=== PATIENT | female | born 1975 | race Caucasian/White ===

== ENCOUNTER 2016-07-14 15:56 | Emergency (ER) | payer BC ==
[2016-07-14] MEDS ORDERED: SODIUM CHLORIDE 0.9% 1,000 ML IV STA (16:29)
--- NOTE | 2016-07-14 16:32 | ED ---
General Adult HPI - General Chief complaint: Dizziness Stated complaint: Near-syncope Time Seen by Provider: 07/14/16 16:24 Source: patient, EMS, RN notes reviewed Mode of arrival: EMS Limitations: no limitations - History of Present Illness Initial comments: Patient is a pleasant 40-year-old female presenting to the emergency department with lightheadedness and near syncopal episode. Symptoms have somewhat improved. Patient felt lightheaded and not well from this morning however prior to arrival symptoms did worsen. Patient felt very lightheaded and very fatigued. EMS reported that blood pressure was low. Patient states she is somewhat improved with fluids. Patient states she just started a new blood pressure medicine on Sunday. Patient is unclear with his blood pressure medicine as. Patient denies any chest pain. No dyspnea. No confusion or isolated area of weakness. - Related Data Home Medications Medication Instructions Recorded Confirmed Esomeprazole Magnesium [NexIUM] 40 mg PO DAILY 07/14/16 07/14/16 Hydrochlorothiazide [Hydrodiuril] 25 mg PO DAILY 07/14/16 07/14/16 Previous Rx's Medication Instructions Recorded Aspirin [Adult Low Dose Aspirin EC] 81 mg PO DAILY #90 tablet. 07/15/15 Atorvastatin [Lipitor] 80 mg PO HS #30 tab 07/15/15 Clopidogrel [Plavix] 75 mg PO DAILY #30 tab 07/15/15 Lisinopril [Zestril] 5 mg PO BID #60 tab 07/15/15 Metoprolol Tartrate [Lopressor] 25 mg PO BID #60 tab 07/15/15 Allergies Allergy/AdvReac Type Severity Reaction Status Date / Time No Known Allergies Allergy Verified 07/14/16 17:07 Review of Systems ROS Statement: Those systems with pertinent positive or pertinent negative responses have been documented in the HPI. ROS Other: All systems not noted in ROS Statement are negative. Constitutional: Denies: fever Eyes: Denies: eye pain ENT: Denies: ear pain Respiratory: Denies: dyspnea Cardiovascular: Denies: chest pain Endocrine: Reports: fatigue Genitourinary: Denies: dysuria Musculoskeletal: Denies: back pain Skin: Denies: rash Neurological: Denies: headache Past Medical History Past Medical History: Coronary Artery Disease (CAD), Chest Pain / Angina, Hypertension, Pneumonia, Rheumatoid Arthritis ([place]) History of Any Multi-Drug Resistant Organisms: None Reported Past Surgical History: Cholecystectomy, Heart Catheterization, Tubal Ligation Additional Past Surgical History / Comment(s): clear heart cath on 07/14/2015 Past Anesthesia/Blood Transfusion Reactions: No Reported Reaction Past Psychological History: No Psychological Hx Reported Smoking Status: Never smoker Past Alcohol Use History: None Reported Past Drug Use History: None Reported - Past Family History Mother Family Medical History: Cancer Additional Family Medical History / Comment(s): breast [place] General Exam Limitations: no limitations General appearance: alert, in no apparent distress Head exam: Present: atraumatic Eye exam: Present: normal appearance, PERRL, EOMI. Absent: nystagmus ENT exam: Present: normal oropharynx Neck exam: Present: normal inspection Respiratory exam: Present: normal lung sounds bilaterally Cardiovascular Exam: Present: regular rate, normal rhythm Expanded Peripheral pulses: 2+: Radial (R), Radial (L), Dorsalis Pedis (R), Dorsalis Pedis (L) GI/Abdominal exam: Present: soft. Absent: tenderness Extremities exam: Present: normal inspection. Absent: pedal edema, calf tenderness Neurological exam: Present: alert, oriented X3, CN II-XII intact. Absent: motor sensory deficit Expanded Patient oriented to: Present: person, place, time Speech: Present: fluid speech Cranial nerves: EOM's Intact: Normal Sensory exam: Upper Extremity Light Touch: Normal, Lower Extremity Light Touch: Normal Motor strength exam: RUE: 5, LUE: 5, RLE: 5, LLE: 5 Eye Response: (4) open spontaneously Motor Response: (6) obeys commands Verbal Response: (5) oriented Psychiatric exam: Present: normal affect, normal mood Skin exam: Present: normal color Course Vital Signs 07/14/16 07/14/16 15:57 17:00 Temperature 96.9 F L Pulse Rate 74 67 Respiratory 20 18 Rate Blood Pressure 111/58 111/70 O2 Sat by Pulse 99 100 Oximetry EKG Findings - EKG Comments: EKG Findings:: Normal sinus rhythm 73. Normal intervals. Normal axis. Normal QRS. Nonspecific T waves. Medical Decision Making - Medical Decision Making Patient reexamined and feels much better. Patient still is slightly fatigued. Patient was able to get up and walk around without any difficulty. Repeat blood pressure maintained stable. Patient requests discharge. Mother is present and states recent blood pressure medicine was diaphoretic. Patient is advised to discontinue this until follow-up. - Lab Data Result diagrams: 07/14/16 16:03 07/14/16 16:03 Lab Results 07/14/16 07/14/16 07/14/16 Range/Units 16:03 16:03 16:03 WBC 7.0 (3.8-10.6) k/uL RBC 4.88 (3.80-5.40) m/uL Hgb 14.4 (11.4-16.0) gm/dL Hct 41.2 (34.0-46.0) % MCV 84.3 (80.0-100.0) fL MCH 29.4 (25.0-35.0) pg MCHC 34.9 (31.0-37.0) g/dL RDW 13.2 (11.5-15.5) % Plt Count 237 (150-450) k/uL Neutrophils % 57 % Lymphocytes % 33 % Monocytes % 6 % Eosinophils % 2 % Basophils % 1 % Neutrophils # 4.0 (1.3-7.7) k/uL Lymphocytes # 2.3 (1.0-4.8) k/uL Monocytes # 0.4 (0-1.0) k/uL Eosinophils # 0.1 (0-0.7) k/uL Basophils # 0.1 (0-0.2) k/uL PT (9.0-12.0) sec INR (<1.1) APTT (22.0-30.0) sec Sodium 143 (137-145) mmol/L Potassium 4.6 (3.5-5.1) mmol/L Chloride 107 (98-107) mmol/L Carbon Dioxide 24 (22-30) mmol/L Anion Gap 12 mmol/L BUN 29 H (7-17) mg/dL Creatinine 1.50 H (0.52-1.04) mg/dL Est GFR (MDRD) Af Amer 47 (>60 ml/min/1.73 sqM) Est GFR (MDRD) Non-Af 39 (>60 ml/min/1.73 sqM) Glucose 63 L (74-99) mg/dL Calcium 10.1 (8.4-10.2) mg/dL Phosphorus 3.2 (2.5-4.5) mg/dL Magnesium 2.3 (1.6-2.3) mg/dL Total Bilirubin 1.2 (0.2-1.3) mg/dL AST 20 (14-36) U/L ALT 24 (9-52) U/L Alkaline Phosphatase 78 (38-126) U/L Total Creatine Kinase 53 (30-135) U/L CK-MB (CK-2) 3.0 H* (0.0-2.4) ng/mL CK-MB (CK-2) Rel Index 5.7 Troponin I <0.012 (0.000-0.034) ng/mL Total Protein 7.4 (6.3-8.2) g/dL Albumin 4.4 (3.5-5.0) g/dL TSH 1.690 (0.465-4.680) mIU/L Free T4 1.03 (0.78-2.19) ng/dL Free T3 pg/mL 3.9 (2.8-5.3) pg/ml // Range/Units 16:03 WBC (3.8-10.6) k/uL RBC (3.80-5.40) m/uL Hgb (11.4-16.0) gm/dL Hct (34.0-46.0) % MCV (80.0-100.0) fL MCH (25.0-35.0) pg MCHC (31.0-37.0) g/dL RDW (11.5-15.5) % Plt Count (150-450) k/uL Neutrophils % % Lymphocytes % % Monocytes % % Eosinophils % % Basophils % % Neutrophils # (1.3-7.7) k/uL Lymphocytes # (1.0-4.8) k/uL Monocytes # (0-1.0) k/uL Eosinophils # (0-0.7) k/uL Basophils # (0-0.2) k/uL PT 9.8 (9.0-12.0) sec INR 1.0 (<1.1) APTT 20.6 L (22.0-30.0) sec Sodium (137-145) mmol/L Potassium (3.5-5.1) mmol/L Chloride (98-107) mmol/L Carbon Dioxide (22-30) mmol/L Anion Gap mmol/L BUN (7-17) mg/dL Creatinine (0.52-1.04) mg/dL Est GFR (MDRD) Af Amer (>60 ml/min/1.73 sqM) Est GFR (MDRD) Non-Af (>60 ml/min/1.73 sqM) Glucose (74-99) mg/dL Calcium (8.4-10.2) mg/dL Phosphorus (2.5-4.5) mg/dL Magnesium (1.6-2.3) mg/dL Total Bilirubin (0.2-1.3) mg/dL AST (14-36) U/L ALT (9-52) U/L Alkaline Phosphatase (38-126) U/L Total Creatine Kinase (30-135) U/L CK-MB (CK-2) (0.0-2.4) ng/mL CK-MB (CK-2) Rel Index Troponin I (0.000-0.034) ng/mL Total Protein (6.3-8.2) g/dL Albumin (3.5-5.0) g/dL TSH (0.465-4.680) mIU/L Free T4 (0.78-2.19) ng/dL Free T3 pg/mL (2.8-5.3) pg/ml - Radiology Data Radiology results: image reviewed (Chest x-ray reveals no acute process) Disposition Clinical Impression: Hypotension Disposition: HOME SELF-CARE Condition: Stable Instructions: Hypotension (ED) Additional Instructions: Hold hydrochlorothiazide until follow-up with cardiology or primary care physician in the beginning of the week. Return for decreased blood pressure, increased dizziness, feeling like urinary pass out, chest pain or shortness of breath, worsening symptoms or other concerns. Referrals: Ayaan Pace MD [Primary Care Provider] - 1-2 days Time of Disposition: 18:24
[2016-07-14 17:04] LABS: Basophils # (A) 0.1 k/uL (0-0.2); Basophils % (A) 1 %; CHCM 34.6; Eosinophils # (A) 0.1 k/uL (0-0.7); Eosinophils % (A) 2 %; HCT 41.2 % (34.0-46.0); HDW 2.69; HGB 14.4 gm/dL (11.4-16.0); Luc # (Auto) 0.14; Luc % (Auto) 2; Lymphocytes # (A) 2.3 k/uL (1.0-4.8); Lymphocytes % (A) 33 %; MCH 29.4 pg (25.0-35.0); MCHC 34.9 g/dL (31.0-37.0); MCV 84.3 fL (80.0-100.0); Mean Platelet Volume 8.5; Monocytes # (A) 0.4 k/uL (0-1.0); Monocytes % (A) 6 %; Neutrophils % (A) 57 %; RBC 4.88 m/uL (3.80-5.40); RDW 13.2 % (11.5-15.5); WBC (Perox) 7.04
[2016-07-14 17:08] LABS: Prothrombin Time 9.8 sec (9.0-12.0)
[2016-07-14 17:09] LABS: Calcium 10.1 mg/dL (8.4-10.2); Magnesium 2.3 mg/dL (1.6-2.3); Phosphorous 3.2 mg/dL (2.5-4.5); Potassium 4.6 mmol/L (3.5-5.1); Total Bilirubin 1.2 mg/dL (0.2-1.3); Total Protein 7.4 g/dL (6.3-8.2)
[2016-07-14 17:13] VITALS: RESP 18
[2016-07-14 17:23] LABS: Partial Thromboplastin Time 20.6 sec (22.0-30.0)
[2016-07-14 17:31] LABS: Creatine Kinase 53 U/L (30-135)
--- NOTE | 2016-07-14 17:40 | XR ---
EXAMINATION TYPE: XR chest 2V DATE OF EXAM: 07/14/2016 5:29 PM COMPARISON: NONE HISTORY: Weakness and chest pain TECHNIQUE: Frontal and lateral views of the chest are obtained. FINDINGS: Heart and mediastinum are normal lungs are clear. Diaphragm is normal. Bony thorax appears normal. There are chest leads. IMPRESSION: Normal chest
[2016-07-14 17:43] LABS: Troponin I <0.012 ng/mL (0.000-0.034)
[2016-07-14 18:36] VITALS: BP 101/58; PULSE 70; TEMP 97.7
== END 2016-07-14 18:36 | disposition home or self-care (01) ==
LOC: EC 15:56
DX: I95.9 Hypotension, unspecified (principal); I10 Essential (primary) hypertension; Z79.899 Other long term (current) drug therapy
CPT/HCPCS: 36415; 71020; 80053; 82550; 82553; 83735; 84100; 84439; 84443; 84481; 84484; 85025; 85610; 85730; 93005; 96360; 99284; 99285

== ENCOUNTER 2019-03-20 19:40 | Emergency (ER) | payer BC ==
[2019-03-20 19:49] VITALS: BP 150/103; PULSE 80; RESP 20; TEMP 98.7
[2019-03-20] MEDS ORDERED: LIDOCAINE 1% INJ 10MG/ML (20 ML MDV) SQ STA (19:59)
[2019-03-20] MEDS ORDERED: DIPH,PERTUS(ACELL)TETVAC-LF 0.5 ML VIAL IM ONE (19:59)
[2019-03-20] MEDS ORDERED: WATER FOR IRRIG, STERILE 1,000 ML BTL IRRIGATION ONE (19:59)
--- NOTE | 2019-03-20 20:22 | XR ---
PROCEDURE: XR hand complete LT - 3V DATE AND TIME: 03/20/2019 8:15 PM CLINICAL INDICATION: PHH; laceration TECHNIQUE: Department protocol COMPARISON: None FINDINGS: There is no fracture or malalignment. The soft tissues shows soft tissue swelling and evidence of laceration. No radiopaque foreign body. IMPRESSION: Soft tissue swelling/laceration changes.
[2019-03-20] MEDS ORDERED: CEPHALEXIN 500MG STARTER PACK 4 CAP BTL PO STA (21:18)
--- NOTE | 2019-03-20 21:20 | ED ---
General Adult HPI - General Chief complaint: Wound/Laceration Stated complaint: hand lac Time Seen by Provider: 03/20/19 19:47 Source: patient, RN notes reviewed, old records reviewed Mode of arrival: ambulatory Limitations: no limitations - History of Present Illness Initial comments: 43-year-old female patient with no pertinent past HISTORY presents to ED for chief complaint of laceration to left and webbing of hand. Patient reports that she went to stab a knife into a can of soup when she missed instead putting a knife into enter webbing of her hand between her first and second digit. She reports that she does have pain shooting up the arm. Reports that she does have limited range of motion of her thumb now. Denies any other complaints. Systemic: Pt denies fatigue, fever/chills, rash. Pt denies weakness, night sweats, weight loss. Neuro: Pt denies headache, visual disturbances, syncope or pre-syncope. HEENT: Pt denies ocular discharge or irritation, otalgia, rhinorrhea, pharyngitis or notable lymphadenopathy. Cardiopulmonary: Pt denies chest pain, SOB, heart palpitations, dyspnea on exertion. Abdominal/GI: Pt denies abdominal pain, n/v/d. : Pt denies dysuria, burning w/ urination, frequency/urgency. Denies new onset urinary or bowel incontinence. MSK: Pt denies myalgia, loss of strength or function in extremities. Neuro: Pt denies new onset weakness, paresthesias. - Related Data Home Medications Medication Instructions Recorded Confirmed Esomeprazole Magnesium [NexIUM] 40 mg PO DAILY 07/14/16 07/14/16 Hydrochlorothiazide [Hydrodiuril] 25 mg PO DAILY 07/14/16 07/14/16 Previous Rx's Medication Instructions Recorded Aspirin [Adult Low Dose Aspirin EC] 81 mg PO DAILY #90 tablet. 07/15/15 Atorvastatin [Lipitor] 80 mg PO HS #30 tab 07/15/15 Clopidogrel [Plavix] 75 mg PO DAILY #30 tab 07/15/15 Lisinopril [Zestril] 5 mg PO BID #60 tab 07/15/15 Metoprolol Tartrate [Lopressor] 25 mg PO BID #60 tab 07/15/15 Cephalexin [Keflex] 500 mg PO Q12HR 7 Days #14 cap 03/20/19 Allergies Allergy/AdvReac Type Severity Reaction Status Date / Time No Known Allergies Allergy Verified 03/20/19 19:49 Review of Systems ROS Statement: Those systems with pertinent positive or pertinent negative responses have been documented in the HPI. ROS Other: All systems not noted in ROS Statement are negative. Past Medical History Past Medical History: Coronary Artery Disease (CAD), Chest Pain / Angina, Hypertension, Myocardial Infarction ([place]), Pneumonia, Rheumatoid Arthritis (RA) History of Any Multi-Drug Resistant Organisms: None Reported Past Surgical History: Cholecystectomy, Heart Catheterization, Tubal Ligation Additional Past Surgical History / Comment(s): clear heart cath on 07/14/2015 Past Anesthesia/Blood Transfusion Reactions: No Reported Reaction Past Psychological History: No Psychological Hx Reported Smoking Status: Never smoker Past Alcohol Use History: None Reported Past Drug Use History: None Reported - Past Family History Mother Family Medical History: Cancer Additional Family Medical History / Comment(s): breast [place] General Exam - General Exam Comments Initial Comments: Constitutional: NAD, AOX3, Pt has pleasant affect. HEENT: NC/AT, trachea midline, neck supple, no lymphadenopathy. Posterior pharynx non erythematous, without exudates. External ears appear normal, without discharge. Mucous membranes moist. Eyes PERRLA, EOM intact. There is no scleral icterus. No pallor noted. Cardiopulmonary: RRR, no murmurs, rubs or gallops, no JVD noted. Lungs CTAB in anterior and posterior john. No peripheral edema. Abdominal exam: Abdomen soft and non-distended. Abdomen non-tender to palpation in all 4 quadrants. Bowel sounds active in LLQ. No hepatosplenomegaly. No ecchymosis Neuro: CN II-XII grossly intact. No nuchal rigidity. No raccon eyes, no christina sign, no hemotympanum. No cervical spinal tenderness. MSK: Flexion extension of left thumb intact. Abduction and abduction limited. 2 cm laceration, vigorously irrigated, prepped and one simple interrupted suture. No visible tendon or bone involvement. Patient placed in thumb spica splint. Neurovascularly intact before and after splint placement. Sensation intact. Capillary refill less than 2 seconds. No posterior calf tenderness bilaterally, homans sign negative bilaterally. Posterior tibialis and radial pulse +2 bilaterally. Sensation intact in upper and lower extremities. Full active ROM in upper and lower extremities, 5/5 stregnth. Limitations: no limitations Course Vital Signs 03/20/19 19:47 Temperature 98.7 F Pulse Rate 80 Respiratory 20 Rate Blood Pressure 150/103 O2 Sat by Pulse 99 Oximetry Medical Decision Making - Medical Decision Making 43-year-old female patient with no pertinent past HISTORY presents to ED for chief complaint of laceration to left and webbing of hand. Patient reports that she went to stab a knife into a can of soup when she missed instead putting a knife into enter webbing of her hand between her first and second digit. She reports that she does have pain shooting up the arm. Reports that she does have limited range of motion of her thumb now. Denies any other complaints. Patient vital signs are stable, afebrile. Physical exam displayed: Flexion extension of left thumb intact. Abduction and abduction limited. 2 cm laceration, vigorously irrigated, prepped and one simple interrupted suture. No visible tendon or bone involvement. Patient placed in thumb spica splint. Neurovascularly intact before and after splint placement. Sensation intact. Capillary refill less than 2 seconds. Patient initiated on Keflex. Placed in thumb spica splint. An films with soft tissue swelling/laceration changes. No risk intact after splint placement. Patient was discharged to follow-up with orthopedic consult tomorrow and return to ER if condition worsens. Case discussed with Dr. Quiroz. Disposition Clinical Impression: Laceration Disposition: HOME SELF-CARE Condition: Stable Instructions (If sedation given, give patient instructions): Care For Your Stitches (ED), Laceration (ED) Additional Instructions: Follow-up with primary care and orthopedic consult tomorrow. Continue to wear splint. Monitor for signs symptoms of infection. Take antibiotics as directed. Return to ER if condition worsens. Please return for suture removal: Hand: 7-10 days Face: 5 days Chest/abdomen: 12-14 days Extremities: 7-10 days Scalp: 7 days Eyebrow: 5-7 days Foot/sole: 12-14 days Please monitor for signs and symptoms of infection including: redness, warmth, drainage, discharge. Please return to ED if these signs or symptoms occur, new signs or symptoms develop or if condition worsens in anyway. Prescriptions: Cephalexin [Keflex] 500 mg PO Q12HR 7 Days #14 cap Is patient prescribed a controlled substance at d/c from ED?: No Referrals: Ayaan Pace MD [Primary Care Provider] - 1-2 days Kavin Carroll DO [Medical Doctor] - 1-2 days
== END 2019-03-20 21:44 | disposition home or self-care (01) ==
LOC: EC 19:40
DX: S61.412A Laceration without foreign body of left hand, initial encounter (principal); I25.119 Atherosclerotic heart disease of native coronary artery with unspecified angina pectoris; I10 Essential (primary) hypertension; I25.2 Old myocardial infarction; Z79.899 Other long term (current) drug therapy; Z95.818 Presence of other cardiac implants and grafts; Z23 Encounter for immunization; W26.0XXA Contact with knife, initial encounter; Y93.89 Activity, other specified; Y92.009 Unspecified place in unspecified non-institutional (private) residence as the place of occurrence of the external cause
CPT/HCPCS: 73130; 90715; 99283; 12001; 90471; J2001

== ENCOUNTER → 2019-09-03 | Outpatient (CLI) | payer BC ==
--- NOTE | 2019-09-03 18:28 | MR ---
EXAMINATION TYPE: MR knee LT wo con DATE OF EXAM: 09/03/2019 COMPARISON: None HISTORY: Left knee pain, no trauma TECHNIQUE: Multiplanar, multisequence images of the knee is performed without IV contrast. FINDINGS: MEDIAL MENISCUS: Chronic tear anterior horn and body medial meniscus. Posterior and is intact LATERAL MENISCUS: Anterior and posterior horns are intact without tear. CRUCIATE LIGAMENTS: The anterior and posterior cruciate ligaments are intact and unremarkable. COLLATERAL LIGAMENTS: The medial collateral ligament and lateral collateral ligament complex are inta ct and unremarkable. EXTENSOR MECHANISM: Visualized quadriceps and patellar tendons are intact. EFFUSION: Small suprapatellar joint effusion. POPLITEAL CYST: No popliteal/pierre cyst. TRICOMPARTMENT SPACES: Severe narrowing medial tibiofemoral joint space and mild narrowing lateral ti biofemoral joint space. Moderate narrowing patellofemoral joint space. Associated spur formation. CARTILAGE: Cartilaginous thinning noted without defects seen. BONE MARROW SIGNAL: No focal abnormal marrow signal is appreciated. OTHER: No additional significant abnormality is appreciated. IMPRESSION: 1. Advanced changes of osteoarthritis. 2. Chronic tear anterior horn and body of the medial meniscus.
== END | disposition home or self-care (01) ==
LOC: RADMRIMAIN 16:20
PROVIDERS: ATTEND Orthopaedic Surgery
DX: M17.12 Unilateral primary osteoarthritis, left knee (principal); I10 Essential (primary) hypertension; S83.242A Other tear of medial meniscus, current injury, left knee, initial encounter

== ENCOUNTER 2020-12-14 03:11 | Inpatient (IN) | payer BC ==
--- NOTE | 2020-12-14 03:30 | ED ---
Chest Pain HPI - General Chief Complaint: Chest Pain Stated Complaint: Chest Pain Time Seen by Provider: 12/14/20 03:19 Source: patient Mode of arrival: wheelchair - History of Present Illness Initial Comments: This patient is a 45-year-old woman who states that she started having pain shortly after 3 AM. The patient states that she had awakened from sleep not feeling well and then noticed she was having left upper chest pain. She had her bring her here. Complaint: chest pain Onset/Timin -: minutes(s) Onset: during rest Pain Location: substernal Pain Radiation: none Severity: severe Quality: aching Consistency: constant Improves With: nothing Worsens With: nothing Treatments Prior to Arrival: none - Related Data Previous Rx's Medication Instructions Recorded Aspirin [Adult Low Dose Aspirin EC] 81 mg PO DAILY #90 tablet. 07/15/15 Clopidogrel [Plavix] 75 mg PO DAILY #30 tab 07/15/15 lisinopriL [Zestril] 5 mg PO BID #60 tab 07/15/15 Allergies Allergy/AdvReac Type Severity Reaction Status Date / Time No Known Allergies Allergy Verified 12/14/20 09:22 Review of Systems ROS Statement: Those systems with pertinent positive or pertinent negative responses have been documented in the HPI. ROS Other: All systems not noted in ROS Statement are negative. Constitutional: Denies: fever, chills Respiratory: Denies: cough, dyspnea Cardiovascular: Reports: chest pain. Denies: palpitations, dyspnea on exertion, edema Gastrointestinal: Denies: abdominal pain, nausea, vomiting Genitourinary: Denies: dysuria Musculoskeletal: Denies: back pain Skin: Denies: rash Neurological: Denies: headache, weakness, numbness EKG Findings - EKG Comments: EKG Findings:: Possible old anterior infarct. - EKG Results: EKG: interpreted by ERMD, sinus rhythm (Rate 72 bpm), normal axis, normal ST/T Past Medical History Past Medical History: Coronary Artery Disease (CAD), Chest Pain / Angina, Hypertension, Myocardial Infarction ([place]), Pneumonia, Rheumatoid Arthritis ([place]) History of Any Multi-Drug Resistant Organisms: None Reported Past Surgical History: Cholecystectomy, Heart Catheterization, Tubal Ligation Additional Past Surgical History / Comment(s): clear heart cath on 07/14/2015 Past Anesthesia/Blood Transfusion Reactions: No Reported Reaction Past Psychological History: No Psychological Hx Reported Smoking Status: Never smoker Past Alcohol Use History: None Reported Past Drug Use History: None Reported - Past Family History Mother Family Medical History: Cancer Additional Family Medical History / Comment(s): breast [place] General Exam General appearance: alert, in no apparent distress Head exam: Present: atraumatic, normocephalic Eye exam: Present: normal appearance. Absent: scleral icterus, conjunctival injection ENT exam: Present: normal oropharynx Neck exam: Absent: tenderness Respiratory exam: Present: normal lung sounds bilaterally, chest wall tenderness. Absent: respiratory distress, wheezes, rales, rhonchi, stridor Cardiovascular Exam: Present: regular rate, normal rhythm, normal heart sounds. Absent: systolic murmur, diastolic murmur, rubs, gallop GI/Abdominal exam: Present: soft. Absent: distended, tenderness, guarding, rebound, rigid, mass Extremities exam: Present: normal inspection, normal capillary refill. Absent: pedal edema, calf tenderness Back exam: Present: normal inspection. Absent: CVA tenderness (R), CVA tenderness (L) Neurological exam: Present: alert Skin exam: Present: warm, dry, intact, normal color. Absent: rash Course Vital Signs 12/14/20 12/14/20 12/14/20 03:12 03:35 04:05 Temperature 98.9 F Pulse Rate 83 77 Pulse Rate [ 79 Escrow Assistant ] Respiratory 22 22 Rate Blood Pressure 179/106 119/64 O2 Sat by Pulse 98 95 Oximetry 12/14/20 12/14/20 12/14/20 04:10 04:15 04:20 Temperature Pulse Rate 84 78 78 Pulse Rate [ Escrow Assistant ] Respiratory 22 23 22 Rate Blood Pressure 81/57 88/54 86/43 O2 Sat by Pulse 95 96 97 Oximetry Chest Pain [facility] Patient is a 45-year-old woman with left anterior chest pain. Initial ECG is suspicious but not diagnostic. While the patient was having x-ray she became unresponsive. Taken directly to the resuscitation bay and ACLS protocol instituted. Patient in V. fib. Shock is delivered and CPR continued with 1 mg of epinephrine. At the pulse check, there is ROSC, and patient did become alert and able to speak. At this point, the ECG shows ST elevations in lateral leads 1, aVL as well as leads V2, V3, V4. The medical lab technologist was activated. Case is discussed with Dr. Mondragon, who requests that Dr. Cadena be paged. I then discussed the case with him as well. Disposition
[2020-12-14] MEDS ORDERED: ASPIRIN 81 MG PO STA (03:36)
[2020-12-14] MEDS ORDERED: MORPHINE SULFATE 4 MG/ML SYRINGE IV STA ×2 (03:36→04:12)
[2020-12-14 03:42] LABS: Basophils # (A) 0.1 k/uL (0-0.2); Basophils % (A) 1 %; Eosinophils # (A) 0.2 k/uL (0-0.7); Eosinophils % (A) 2 %; HCT 39.7 % (34.0-46.0); HGB 12.8 gm/dL (11.4-16.0); Lymphocytes # (A) 3.6 k/uL (1.0-4.8); Lymphocytes % (A) 40 %; MCH 27.5 pg (25.0-35.0); MCHC 32.2 g/dL (31.0-37.0); MCV 85.4 fL (80.0-100.0); Mean Platelet Volume 8.8; Monocytes # (A) 0.4 k/uL (0-1.0); Monocytes % (A) 5 %; Neutrophils # (A) 4.6 k/uL (1.3-7.7); Neutrophils % (A) 51 %; Platelet Count 216 k/uL (150-450); RBC 4.65 m/uL (3.80-5.40); RDW 13.2 % (11.5-15.5); WBC 9.2 k/uL (3.8-10.6)
[2020-12-14] MEDS ORDERED: ONDANSETRON 4 MG/2 ML VIAL IVP STA ×2 (03:44→04:07)
[2020-12-14 03:59] LABS: ALT 13 U/L (4-34); AST 18 U/L (14-36); African American GFR (CKD) >90 (>60 ml/min/1.73 sqM); Albumin 3.8 g/dL (3.5-5.0); Alkaline Phosphatase 86 U/L (38-126); Anion Gap 8 mmol/L; Blood Urea Nitrogen 14 mg/dL (7-17); Calcium 9.5 mg/dL (8.4-10.2); Carbon Dioxide 22 mmol/L (22-30); Chloride 105 mmol/L (98-107); Glucose 139 mg/dL (74-99); Magnesium 1.8 mg/dL (1.6-2.3); Non-African American GFR(CKD) >90 (>60 ml/min/1.73 sqM); Potassium 4.2 mmol/L (3.5-5.1); Sodium 135 mmol/L (137-145); Total Bilirubin 0.7 mg/dL (0.2-1.3); Total Protein 6.7 g/dL (6.3-8.2)
[2020-12-14 04:02] LABS: Glucose,Whole Blood 122 mg/dL (75-99)
[2020-12-14] MEDS ORDERED: HEPARIN SODIUM 1,000 UN/ML (10ML VL) IV ONE (04:07)
[2020-12-14] MEDS ORDERED: HEPARIN SODIUM 1,000 UN/ML (10ML VL) IV PRN ×2 (04:07→06:04)
[2020-12-14] MEDS ORDERED: ATORVASTATIN 40 MG TAB PO STA (04:12)
[2020-12-14] MEDS ORDERED: HEPARIN SOD,PORK IN 0.45% NACL 25,000 UNIT in 0.45% NACL 1 250ML.BAG IV SCH (04:15)
--- NOTE | 2020-12-14 04:23 | XR ---
EXAMINATION TYPE: XR chest 1V DATE OF EXAM: 12/14/2020 COMPARISON: 07/14/2016 HISTORY: Chest pain TECHNIQUE: FINDINGS: Heart is normal. Lungs are clear of consolidation. There are no hilar masses. There are yudelka st leads. Bony thorax is intact. IMPRESSION: No active cardiopulmonary disease. No change.
[2020-12-14] MEDS ORDERED: IV FLUID CONTINUATION 400 ML IV ONE (04:30)
[2020-12-14] MEDS ORDERED: IV FLUID CONTINUATION 100 ML IV ONE (04:30)
[2020-12-14] MEDS ORDERED: SODIUM CHLORIDE 0.9% 1,000 ML IV ONE (04:35)
[2020-12-14] MEDS ORDERED: LIDOCAINE 1% INJ 10MG/ML (20 ML MDV) SQ ONE ×2 (04:40→04:42)
[2020-12-14] MEDS ORDERED: LIDOCAINE 1% INJ 10MG/ML (20 ML MDV) ONE (04:40)
[2020-12-14] MEDS ORDERED: NOREPINEPHRINE 4 MG in SODIUM CHLORIDE 0.9% 250 ML IV ONE (04:45)
[2020-12-14 04:47] LABS: INR 0.9 (<1.2); Prothrombin Time 9.5 sec (9.0-12.0)
[2020-12-14] MEDS ORDERED: PRASUGREL 10 MG TAB ONE (05:01)
[2020-12-14] MEDS ORDERED: fentaNYL (PF) 50 MCG/ML 2 ML AMP ONE (05:02)
[2020-12-14] MEDS ORDERED: fentaNYL (PF) 50 MCG/ML 2 ML AMP IV ONE (05:06)
[2020-12-14] MEDS ORDERED: PRASUGREL 10 MG TAB PO ONE (05:17)
[2020-12-14] MEDS ORDERED: IOPAMIDOL-370 125ML BTL INJ ONE (05:18)
[2020-12-14] MEDS ORDERED: RX INFO: IV CONTRAST WAS GIVEN 1 EACH MISC MISCELLANE PRN (05:18)
[2020-12-14] MEDS ORDERED: SODIUM CHLORIDE 0.9% 1,000 ML IV SCH (05:30)
[2020-12-14 05:48] LABS: Glucose,Whole Blood 169 mg/dL (75-99)
[2020-12-14] MEDS ORDERED: ONDANSETRON 4 MG/2 ML VIAL IVP PRN (06:16)
[2020-12-14] MEDS: SODIUM CHLORIDE 0.9% 1,000 ML IV SCH ×2 (06:45→19:59)
[2020-12-14] MEDS: NOREPINEPHRINE 4 MG in SODIUM CHLORIDE 0.9% 250 ML IV SCH ×2 (06:46→18:24)
[2020-12-14] MEDS ORDERED: METOCLOPRAMIDE 5 MG/ML 2 ML VIAL IVP PRN (07:01)
[2020-12-14] MEDS: HEPARIN SOD,PORK IN 0.45% NACL 25,000 UNIT in 0.45% NACL 1 250ML.BAG IV SCH (08:09)
--- NOTE | 2020-12-14 08:09 | P.HPIM ---
History of Present Illness H&P Date: 12/14/20 Chief Complaint: Significant chest pressure and episode of ventricular fibri llation This is a history of 45-year-old white female who has known history of CAD in the past with myocardial infraction. The patient states chest pain yesterday and it was reminiscent of previous events. Initial workup was negative but when she went to have chest x-ray done she had an episode of ventricular fibrillation. The patient was then resuscitated appropriately and taken to the catheter lab. The patient is now seen postoperatively of ST elevation myocardial infarction. The patient is tired. She is typically compliant with her medications given her previous history but sees me minimally throughout the years. No voiding symptoms. Diaphoresis is noted. Review of Systems Constitutional: Denies chills, Denies fever Eyes: denies blurred vision, denies pain Ears, nose, mouth and throat: Denies headache, Denies sore throat Cardiovascular: Reports as per HPI, Reports chest pain, Reports shortness of breath Gastrointestinal: Denies abdominal pain, Denies diarrhea, Denies nausea, Denies vomiting Genitourinary: Denies dysuria, Denies hematuria Musculoskeletal: Denies myalgias Past Medical History Past Medical History: Coronary Artery Disease (CAD), Chest Pain / Angina, Hypertension, Myocardial Infarction (SD), Pneumonia, Rheumatoid Arthritis (RA) History of Any Multi-Drug Resistant Organisms: None Reported Past Surgical History: Cholecystectomy, Heart Catheterization, Tubal Ligation Additional Past Surgical History / Comment(s): clear heart cath on 07/14/2015 Past Anesthesia/Blood Transfusion Reactions: No Reported Reaction Past Psychological History: No Psychological Hx Reported Smoking Status: Never smoker Past Alcohol Use History: None Reported Past Drug Use History: None Reported - Past Family History Mother Family Medical History: Cancer Additional Family Medical History / Comment(s): breast CA Medications and Allergies Home Medications Medication Instructions Recorded Confirmed Type Aspirin [Adult Low Dose Aspirin EC] 81 mg PO DAILY #90 tablet. 07/15/15 07/14/16 Rx Atorvastatin [Lipitor] 80 mg PO HS #30 tab 07/15/15 07/14/16 Rx Clopidogrel [Plavix] 75 mg PO DAILY #30 tab 07/15/15 07/14/16 Rx Metoprolol Tartrate [Lopressor] 25 mg PO BID #60 tab 07/15/15 07/14/16 Rx lisinopriL [Zestril] 5 mg PO BID #60 tab 07/15/15 07/14/16 Rx Esomeprazole Magnesium [NexIUM] 40 mg PO DAILY 07/14/16 07/14/16 History hydroCHLOROthiazide [Hydrodiuril] 25 mg PO DAILY 07/14/16 07/14/16 History Cephalexin [Keflex] 500 mg PO Q12HR 7 Days #14 cap 03/20/19 Rx Allergies Allergy/AdvReac Type Severity Reaction Status Date / Time No Known Allergies Allergy Verified 12/14/20 03:15 Physical Exam Vitals: Vital Signs Temp Pulse Pulse Resp BP Pulse Ox 12/14/20 07:00 113 H 20 97/69 99 12/14/20 06:50 63 18 97/69 100 12/14/20 06:40 73 7 L 100/67 100 12/14/20 06:30 73 17 101/74 99 12/14/20 06:20 68 18 99 12/14/20 06:10 61 18 100/75 100 12/14/20 06:00 66 18 120/79 100 12/14/20 05:50 76 11 L 99 12/14/20 04:25 68 20 84/50 95 12/14/20 04:20 78 22 86/43 97 12/14/20 04:15 78 23 88/54 96 12/14/20 04:10 84 22 81/57 95 12/14/20 04:05 77 22 119/64 95 12/14/20 03:35 79 12/14/20 03:12 98.9 F 83 22 179/106 98 Intake and Output 12/13/20 12/14/20 12/14/20 22:59 06:59 14:59 Intake Total 565.71 78.448 Output Total 0 0 Balance 565.71 78.448 Intake: IV 565.71 75 .9 150 75 Intake, IV Titration 3.448 Amount Norepinephrine 4 mg In 3.448 Sodium Chloride 0.9% 250 ml @ 0.05 MCG/KG/MIN 24. 627 mls/hr IV .[id number] [facility] Rx#:[id number] Output: Urine 0 0 Other: Weight 129.274 kg - Constitutional General appearance: cooperative, obese - EENT Eyes: EOMI - Cardiovascular Rhythm: regular Heart sounds: normal: S1, S2 Abnormal Heart Sounds: no S3 Gallop - Gastrointestinal General gastrointestinal: soft, no tenderness - Integumentary Integumentary: no cellulitis - Psychiatric Psychiatric: A&O x's 3 Results CBC & Chem 7: 12/14/20 03:33 12/14/20 03:33 Labs: Abnormal Lab Results - Last 24 Hours (Table) 12/14/20 12/14/20 12/14/20 Range/Units 03:33 03:33 04:01 D-Dimer 0.68 H (<0.60) mg/L FEU Sodium 135 L (137-145) mmol/L Glucose 139 H (74-99) mg/dL POC Glucose (mg/dL) 122 H (75-99) mg/dL 12/14/20 Range/Units 05:46 D-Dimer (<0.60) mg/L FEU Sodium (137-145) mmol/L Glucose (74-99) mg/dL POC Glucose (mg/dL) 169 H (75-99) mg/dL Assessment and Plan (1) ST elevation (STEMI) myocardial infarction Current Visit: Yes Status: Acute Code(s): I21.3 - ST ELEVATION (STEMI) MYOCARDIAL INFARCTION OF [facility] SITE SNOMED Code(s): 65934024 (2) S/P cardiac cath Current Visit: No Status: Acute Code(s): Z98.89 - OTHER SPECIFIED POSTPROCEDURAL STATES * DO NOT USE * SNOMED Code(s): 89647812529912 Plan: Continue standard postop myocardial infarction care. Reconcile home medications as necessary. Continue follow with cardiology. Prognosis is guarded
[2020-12-14] MEDS: METOPROLOL TARTRATE 25 MG TAB PO SCH ×2 (09:17→20:00)
[2020-12-14 10:26] LABS: Troponin I 3.55 ng/mL (0.000-0.034)
--- NOTE | 2020-12-14 10:52 | CC ---
CARDIAC CATHETERIZATION REPORT INDICATION: Acute anterior myocardial infarction. This is a 45-year-old lady who came to hospital with symptoms of precordial chest pain, did not have much EKG changes; while she was having a chest x-ray had ventricular fibrillation and had to be shocked, following which she developed anterior ST- elevation, for which we were called in as a STEMI alert. I met the patient for the first time in the cardiac cath lab technologist. She complained of feeling unwell and had chest tightness and was hypotensive. I started her on Levophed and proceeded to perform cardiac catheterization expeditiously. PROCEDURE NOTE: After obtaining informed consent, left heart catheterization and coronary angiogram were performed via the right femoral artery using standard Colin catheters. The patient tolerated the procedure well without any obvious immediate complications. She continued to be on Levophed for hypotension. FINDINGS: HEMODYNAMICS: Left ventricular end-diastolic pressure is 20 mm. There is no significant gradient across the aortic valve. LEFT VENTRICULOGRAM: Left ventriculogram was not performed. ANGIOGRAPHIC DATA: Left main coronary artery. Left main coronary artery is a normal-sized vessel and is free of stenosis. It divides into left anterior descending coronary artery and circumflex coronary artery. Circumflex coronary artery is a small nondominant vessel. LAD appears totally occluded in its distal portion. There is a large diagonal branch that is patent and free of disease. Right coronary artery is a large dominant vessel that shows mild nonobstructive coronary artery disease. CONCLUSIONS: 1. Acute occlusion of the mid to distal LAD, probably related to spontaneous dissection. 2. Cardiogenic shock requiring IV Levophed. PLAN: Angiographic data was reviewed by Dr. Cadena, the on-call manager behavior, who felt that the patient is best managed medically. I will start her on IV heparin, Effient, aspirin, statins, and she is off Levophed. She will be started on beta blockers and SHAHIDA inhibitors. She will be admitted to ICU. I will obtain an echocardiogram in the morning. MMODL / IJN: [id number] /
--- NOTE | 2020-12-14 11:01 | ECHOF ---
Referral Reason:STEMI MEASUREMENTS -------- HEIGHT: 170.2 cm WEIGHT: 129.3 kg BP: 100/67 RVIDd: 2.7 cm (< 3.3) IVSd: 1.4 cm (0.6 - 1.1) LVIDd: 4.6 cm (3.9 - 5.3) LVPWd: 1.3 cm (0.6 - 1.1) IVSs: 2.1 cm LVIDs: 2.5 cm LVPWs: 1.5 cm LA Diam: 3.5 cm (2.7 - 3.8) LAESV Index (A-L): 24.75 ml/m Ao Diam: 3.4 cm (2.0 - 3.7) AV Cusp: 2.3 cm (1.5 - 2.6) MV EXCURSION: 16.095 mm (> 18.000) MV EF SLOPE: 72 mm/s (70 - 150) EPSS: 0.9 cm MV E Hill: 0.86 m/s MV DecT: 182 ms MV A Hill: 0.75 m/s MV E/A Ratio: 1.15 RAP: 5.00 mmHg RVSP: 30.70 mmHg FINDINGS -------- Sinus rhythm. This was a technically difficult study with suboptimal views. The left ventricular size is normal. There is moderate concentric left ventricular hypertrophy. O verall left ventricular systolic function is moderate-severely impaired with, an EF between 30 - 35 % . Apical anterior LV wall motion is hypokinetic. Apical lateral LV wall motion is hypokinetic. Apical inferior LV wall motion is hypokinetic. Apical septum LV wall motion is hypokinetic. The right ventricle is normal in size. Normal LA size by volume 22+/-6 ml/m2. The right atrium is normal in size. 5 ml of Lumason was utilized for enhancement of images. Interatrial and interventricular septum intact. The aortic valve is trileaflet, and appears structurally normal. No aortic stenosis or regurgitation. Mild mitral regurgitation is present. Mild tricuspid regurgitation present. Right ventricular systolic pressure is normal at < 35 mmHg. There is no pulmonic regurgitation present. The aortic root size is normal. Normal inferior vena cava with normal inspiratory collapse consistent with estimated right atrial pre ssure of 5 mmHg. There is no pericardial effusion. CONCLUSIONS -------- 1. The left ventricular size is normal. 2. There is moderate concentric left ventricular hypertrophy. 3. Overall left ventricular systolic function is moderate-severely impaired with, an EF between 30 - 35 %. 4. Apical lateral LV wall motion is hypokinetic. 5. Apical inferior LV wall motion is hypokinetic. 6. Apical septum LV wall motion is hypokinetic. 7. 5 ml of Lumason was utilized for enhancement of images. 8. The aortic valve is trileaflet, and appears structurally normal. No aortic stenosis or regurgitati on. 9. Mild mitral regurgitation is present. 10. Mild tricuspid regurgitation present. 11. There is no pericardial effusion. ANIMAL ASSISTANT: Nubia Padron RDCS
[2020-12-14] MEDS: ACETAMINOPHEN TAB 325 MG TAB PO PRN ×2 (11:46→22:02)
--- NOTE | 2020-12-14 13:29 | CONS ---
CONSULTATION Inessa is a 45-year-old lady with history of coronary artery disease, on medical therapy, who presented to hospital with sudden-onset chest pain. She describes it as precordial chest pressure, moderate in intensity, with radiation to her back. The initial EKG showed normal sinus rhythm without significant ST-T wave changes. As the ER physician was evaluating the patient and did a chest x-ray, patient developed an episode of ventricular fibrillation and had to be defibrillated, following which the EKG showed acute ST-segment elevation in the precordial leads, due to which I was consulted, and I saw the patient for the first time in the cardiac catheterization lab. Troponin was normal. Patient seemed to be in distress, was hypotensive. I started her on Levophed, but was stable otherwise. I advised and expeditiously proceeded to perform cardiac catheterization on her. PAST MEDICAL HISTORY: Significant for coronary artery disease, for which she underwent cardiac catheterization several years ago by my associate, Dr. Kline, who could not do any angioplasty at that time, and also hypertension. MEDICATIONS: Medications at home included aspirin, Plavix and Zestril. ALLERGIES: There are NO KNOWN DRUG ALLERGIES. FAMILY HISTORY: Negative for premature coronary artery disease. SOCIAL HISTORY: Negative for current smoking, EtOH abuse or drug abuse. REVIEW OF SYSTEMS: HEENT is unremarkable. CARDIAC: As described above. RESPIRATORY: As described above. GI: Negative. GENITOURINARY: Negative. ALLERGY/IMMUNOLOGY: Negative. SKIN: Negative. MUSCULOSKELETAL: Significant for arthritis. PSYCHOSOCIAL: Negative. ENDOCRINE: Negative. DERMATOLOGY: Negative. CONSTITUTIONAL: Negative. ONCOLOGICAL: Negative. ENTRY LEVEL ACCOUNTING CLERK: Negative. Rest of the system review is not relevant. PHYSICAL EXAMINATION: Patient is comfortable at rest. Vital signs are stable. There is no jugular venous distention. Carotid upstroke is normal. There is no bruit. Chest exam reveals good air entry bilaterally. Heart exam reveals first and second heart sounds. No gallop. No murmur. Abdomen is soft, nontender. Examination of extremities did not reveal any edema. Peripheral pulses are felt. ASSESSMENT: Acute anterior wall myocardial infarction. PLAN: Patient will undergo emergent cardiac catheterization. MMODL / IJN: [id number] /
[2020-12-14 14:59] LABS: Creatine Kinase MB 57.7 ng/mL (0.0-2.4)
[2020-12-14 15:00] LABS: Troponin I 15.3 ng/mL (0.000-0.034)
[2020-12-14] MEDS: ATORVASTATIN 80 MG TAB PO SCH (20:00)
[2020-12-15] MEDS: HEPARIN SOD,PORK IN 0.45% NACL 25,000 UNIT in 0.45% NACL 1 250ML.BAG IV SCH ×2 (03:10→20:57)
[2020-12-15] MEDS: NOREPINEPHRINE 4 MG in SODIUM CHLORIDE 0.9% 250 ML IV SCH ×2 (05:36→13:39)
[2020-12-15 06:32] LABS: HCT 36.3 % (34.0-46.0); HGB 11.7 gm/dL (11.4-16.0); MCH 28.5 pg (25.0-35.0); MCHC 32.3 g/dL (31.0-37.0); MCV 88.3 fL (80.0-100.0); Mean Platelet Volume 9.6; Platelet Count 167 k/uL (150-450); RBC 4.11 m/uL (3.80-5.40); RDW 13.4 % (11.5-15.5); WBC 8.6 k/uL (3.8-10.6)
[2020-12-15 06:47] LABS: ALT 108 U/L (4-34); AST 143 U/L (14-36); African American GFR (CKD) >90 (>60 ml/min/1.73 sqM); Albumin 3.2 g/dL (3.5-5.0); Alkaline Phosphatase 85 U/L (38-126); Anion Gap 5 mmol/L; Blood Urea Nitrogen 10 mg/dL (7-17); Carbon Dioxide 24 mmol/L (22-30); Chloride 109 mmol/L (98-107); Glucose 115 mg/dL (74-99); Non-African American GFR(CKD) >90 (>60 ml/min/1.73 sqM); Potassium 4.3 mmol/L (3.5-5.1); Sodium 138 mmol/L (137-145); Total Bilirubin 0.7 mg/dL (0.2-1.3)
--- NOTE | 2020-12-15 08:25 | P.PN ---
Subjective Principal diagnosis: Stemi The patient is admitted for ST elevation myocardial infarction. The patient complains of headache. Question element of sinus congestion. No fever no chills no significant bloody rhinorrhea. No nausea, vomiting stated. No voiding difficulties noted. No stated angina. Objective - Vital Signs Vital signs: Vital Signs Temp 98 F 12/15/20 00:00 Pulse 84 12/15/20 07:00 Resp 16 12/15/20 07:00 BP 150/107 12/15/20 07:00 Pulse Ox 94 L 12/15/20 07:00 Intake & Output 12/14/20 12/15/20 12/15/20 18:59 06:59 18:59 Intake Total 977.535 8320.129 75 Output Total 950 1125 0 Balance 29.539 -66.871 75 Weight 129.274 kg Intake: IV 900 900 75 .9 900 900 75 Intake, IV Titration 79.539 158.129 Amount Heparin Sod,Pork in 0.45% 76.091 158.129 NaCl 25,000 unit In 0.45 % NaCl 1 250ml.bag @ 7.73 UNITS/KG/HR 9.993 mls/hr IV .Q24H [facility] Rx#: [id number] Norepinephrine 4 mg In 3.448 Sodium Chloride 0.9% 250 ml @ 0.05 MCG/KG/MIN 24. 627 mls/hr IV .[id number] [facility] Rx#:[id number] Output: Urine 950 1125 0 Other: Voiding Method Bedside Commode - Constitutional General appearance: Present: obese - EENT Eyes: Absent: abnormal pupil - Neck Neck: Absent: lymphadenopathy - Respiratory Respiratory: bilateral: diminished - Cardiovascular Rhythm: regular Heart sounds: normal: S1, S2 Abnormal Heart Sounds: Absent: S3 Gallop - Gastrointestinal General gastrointestinal: Present: soft. Absent: tenderness - Integumentary Integumentary: Present: normal - Labs CBC & Chem 7: 12/15/20 05:15 12/15/20 05:15 Labs: Abnormal Lab Results - Last 24 Hours (Table) 12/14/20 12/14/20 12/14/20 Range/Units 09:08 13:54 21:35 APTT 49.2 H (22.0-30.0) sec Chloride (98-107) mmol/L Glucose (74-99) mg/dL AST (14-36) U/L ALT (4-34) U/L Total Creatine Kinase 279 H 498 H (30-135) U/L CK-MB (CK-2) 32.0 H 57.7 H (0.0-2.4) ng/mL Troponin I 3.550 H* 15.300 H* (0.000-0.034) ng/mL Total Protein (6.3-8.2) g/dL Albumin (3.5-5.0) g/dL 12/15/20 12/15/20 Range/Units 05:15 05:15 APTT 44.7 H (22.0-30.0) sec Chloride 109 H (98-107) mmol/L Glucose 115 H (74-99) mg/dL AST 143 H (14-36) U/L ALT 108 H (4-34) U/L Total Creatine Kinase (30-135) U/L CK-MB (CK-2) (0.0-2.4) ng/mL Troponin I (0.000-0.034) ng/mL Total Protein 6.0 L (6.3-8.2) g/dL Albumin 3.2 L (3.5-5.0) g/dL Assessment and Plan (1) ST elevation (STEMI) myocardial infarction Current Visit: Yes Status: Acute Code(s): I21.3 - ST ELEVATION (STEMI) MYOCARDIAL INFARCTION OF [facility] SITE SNOMED Code(s): 19904446 (2) S/P cardiac cath Current Visit: No Status: Acute Code(s): Z98.89 - OTHER SPECIFIED POSTPROCEDURAL STATES * DO NOT USE * SNOMED Code(s): 71799702986656 Plan: Continue standard postop myocardial infarction care. The patient seems to be stable from cardiovascular perspective. We'll continue to follow. Zyrtec/Claritin for sinus congestion. Check CBC and CMP in a.m.
[2020-12-15] MEDS ORDERED: lisinopriL 5 MG TAB PO SCH (09:00)
[2020-12-15] MEDS ORDERED: BENZONATATE 100 MG CAP PO PRN (09:14)
[2020-12-15] MEDS: PRASUGREL 10 MG TAB PO SCH (09:18)
[2020-12-15] MEDS: ASPIRIN 81 MG PO SCH (09:19)
[2020-12-15] MEDS: METOPROLOL TARTRATE 25 MG TAB PO SCH ×2 (09:19→20:48)
[2020-12-15] MEDS: LORATADINE-PSEUDOEPH 5-120 MG 1 EACH TAB.ER.12H PO PRN (09:49)
[2020-12-15] MEDS: SODIUM CHLORIDE 0.9% 1,000 ML IV SCH (10:29)
--- NOTE | 2020-12-15 11:17 | PN ---
PROGRESS NOTE Mrs. Rick is a 45-year-old female who presented with evidence of anterior myocardial infarction and had ventricular tachyarrhythmia, underwent cardiac catheterization by Dr. Mondragon yesterday and was found to have a subtotally occluded distal LAD with findings suggestive of spontaneous dissection. She is feeling well this morning. She denies any symptoms of chest pain. She denies any dizziness or palpitations. She had some nausea yesterday that has resolved. She feels tired overall. She underwent an echocardiogram yesterday that showed impairment of left ventricular systolic function with segmental wall motion abnormality involving the anteroapical and anteroseptal wall with an ejection fraction of 30% to 35%. There was no significant valvular abnormality. She continues to be at this time on Effient 10 mg daily, aspirin once a day, Lipitor 80 mg daily. She continues to be on IV heparin, metoprolol tartrate 25 mg twice a day. PHYSICAL EXAMINATION: Blood pressure is running in the 130s to 150s with a heart rate in the 80s. LUNGS: Clear. HEART: Regular rate and rhythm. S1, S2. No S3. No rub. ABDOMEN: Soft, obese, nontender. EXTREMITIES: No edema. Right groin hematoma. LAB DATA: BUN and creatinine are 10 and 0.74, potassium 4.3. Her peak troponin is 15.3. Her hemoglobin is 11.7. IMPRESSION: 1. Status post acute anterior myocardial infarction with evidence suggestive of spontaneous dissection of the mid distal segment of the LAD. 2. Hypertension. 3. History of hyperlipidemia. RECOMMENDATIONS: From the cardiac standpoint, I will re-initiate treatment with the SHAHIDA inhibitor, increase her level activity, continue the heparin for another 24 hours. I am hopeful that we will see improvement in her left ventricular systolic function with the fact that her troponin elevation has not been significant. Depending on her progress, further recommendations will be made. MMODL / IJN: [id number] / MTDD
[2020-12-15] MEDS: ATORVASTATIN 80 MG TAB PO SCH (20:48)
[2020-12-15] MEDS ORDERED: lisinopriL 10 MG TAB PO SCH (21:00)
[2020-12-16 05:29] LABS: HCT 35.2 % (34.0-46.0); HGB 11.3 gm/dL (11.4-16.0); MCH 27.8 pg (25.0-35.0); MCHC 32.1 g/dL (31.0-37.0); MCV 86.5 fL (80.0-100.0); Mean Platelet Volume 8.8; Platelet Count 187 k/uL (150-450); RBC 4.06 m/uL (3.80-5.40); RDW 13.3 % (11.5-15.5); WBC 7.7 k/uL (3.8-10.6)
[2020-12-16] MEDS: SODIUM CHLORIDE 0.9% 1,000 ML IV SCH ×2 (05:47→20:53)
[2020-12-16 06:01] LABS: ALT 86 U/L (4-34); AST 67 U/L (14-36); African American GFR (CKD) >90 (>60 ml/min/1.73 sqM); Albumin 3.6 g/dL (3.5-5.0); Alkaline Phosphatase 90 U/L (38-126); Anion Gap 6 mmol/L; Blood Urea Nitrogen 10 mg/dL (7-17); Calcium 9.2 mg/dL (8.4-10.2); Carbon Dioxide 23 mmol/L (22-30); Chloride 105 mmol/L (98-107); Glucose 114 mg/dL (74-99); Non-African American GFR(CKD) >90 (>60 ml/min/1.73 sqM); Potassium 3.9 mmol/L (3.5-5.1); Sodium 134 mmol/L (137-145); Total Bilirubin 1.2 mg/dL (0.2-1.3); Total Protein 6.4 g/dL (6.3-8.2)
[2020-12-16] MEDS: LORATADINE-PSEUDOEPH 5-120 MG 1 EACH TAB.ER.12H PO PRN (06:10)
[2020-12-16] MEDS: PRASUGREL 10 MG TAB PO SCH (08:03)
[2020-12-16] MEDS: METOPROLOL TARTRATE 25 MG TAB PO SCH ×2 (08:03→20:52)
[2020-12-16] MEDS: ASPIRIN 81 MG PO SCH (08:03)
[2020-12-16] MEDS: lisinopriL 20 MG TAB PO SCH ×2 (08:03→20:52)
--- NOTE | 2020-12-16 08:39 | PN ---
PROGRESS NOTE Mrs. Rick is a 45-year-old female with known history of hypertension and hyperlipidemia who presented with an ST-elevation anterior myocardial infarction, underwent cardiac catheterization and was found to have evidence consistent with spontaneous dissection of the coronary arteries in the LAD. She was treated medically. She is doing well this morning. She is denying chest pain. Her breathing is stable. She denies any dizziness or palpitation. She denies any nausea. She continues to be in sinus mechanism. She continues to be on aspirin once a day, Effient 10 mg daily, IV heparin, Lipitor 80 mg daily, metoprolol tartrate 25 mg twice a day, and lisinopril 10 mg twice a day. PHYSICAL EXAMINATION: Blood pressure is running in the 140s to 160 with a heart rate in the 80s. LUNGS: Clear. HEART: Regular rate and rhythm. S1, S2. No S3. No rub. ABDOMEN: Soft, nontender. EXTREMITIES: No edema. LAB DATA: BUN and creatinine of 10 and 0.59. Potassium 3.9, hemoglobin of 11.3. IMPRESSION: 1. Status post myocardial infarction with appearance of spontaneous dissection of coronary arteries. 2. Hypertension. 3. Hyperlipidemia. RECOMMENDATIONS: I will stop the IV heparin. I will increase the dose of her SHAHIDA inhibitor to optimize her blood pressure control. She should be able to be transferred to the telemetry floor. If she is stable, I would expect she should be able to be discharged home tomorrow. KEM / ZARA: [id number] /
--- NOTE | 2020-12-16 08:49 | P.PN ---
Subjective Principal diagnosis: Stemi The patient is admitted for ST elevation myocardial infarction. The patient complains of headache. Question element of sinus congestion. No fever no chills no significant bloody rhinorrhea. No nausea, vomiting stated. No voiding difficulties noted. No stated angina. The patient's is alert and stable crit no new complaints. No voiding difficulties. Objective - Vital Signs Vital signs: Vital Signs Temp 97.8 F 12/16/20 05:00 Pulse 90 12/16/20 05:00 Resp 21 12/16/20 05:00 BP 160/99 12/16/20 05:00 Pulse Ox 93 L 12/16/20 05:00 Intake & Output 12/15/20 12/16/20 12/16/20 18:59 06:59 18:59 Intake Total 1150 446.673 Output Total 775 Balance 375 446.673 Weight 124.9 kg Intake: IV 900 200 .9 225 Sodium Chloride 0.9% 1, 675 200 000 ml @ 20 mls/hr IV . Q24H [facility] Rx#:[id number] Intake, IV Titration 246.673 Amount Heparin Sod,Pork in 0.45% 246.673 NaCl 25,000 unit In 0.45 % NaCl 1 250ml.bag @ 7.73 UNITS/KG/HR 9.993 mls/hr IV .Q24H [facility] Rx#: [id number] Oral 250 Output: Urine 775 Other: Voiding Method Toilet Toilet Bedside Commode Bedside Commode # Voids 1 2 # Bowel Movements 1 - Constitutional General appearance: Present: obese - EENT Eyes: Absent: abnormal pupil - Neck Neck: Absent: lymphadenopathy - Respiratory Respiratory: bilateral: CTA - Cardiovascular Rhythm: regular Heart sounds: normal: S1, S2 Abnormal Heart Sounds: Absent: S3 Gallop - Gastrointestinal General gastrointestinal: Present: soft. Absent: tenderness - Integumentary Integumentary: Absent: cellulitis - Psychiatric Psychiatric: Present: A&O x's 3 - Labs CBC & Chem 7: 12/16/20 04:41 12/16/20 04:41 Labs: Abnormal Lab Results - Last 24 Hours (Table) 12/16/20 12/16/20 12/16/20 Range/Units 04:41 04:41 04:41 Hgb 11.3 L (11.4-16.0) gm/dL APTT 35.9 H (22.0-30.0) sec Sodium 134 L (137-145) mmol/L Glucose 114 H (74-99) mg/dL AST 67 H (14-36) U/L ALT 86 H (4-34) U/L Assessment and Plan (1) ST elevation (STEMI) myocardial infarction Current Visit: Yes Status: Acute Code(s): I21.3 - ST ELEVATION (STEMI) MYOCARDIAL INFARCTION OF [facility] SITE SNOMED Code(s): 59960842 (2) S/P cardiac cath Current Visit: No Status: Acute Code(s): Z98.89 - OTHER SPECIFIED P OSTPROCEDURAL STATES * DO NOT USE * SNOMED Code(s): 23773966884115 Plan: Continue standard postop myocardial infarction care. The patient seems to be stable from cardiovascular perspective. We'll continue to follow. Zyrtec/Claritin for sinus congestion. \ Dr. Childers's group Route covering for the weekend starting tomorrow.
[2020-12-16] MEDS: ATORVASTATIN 80 MG TAB PO SCH (20:52)
[2020-12-17 04:41] LABS: African American GFR (CKD) >90 (>60 ml/min/1.73 sqM); Anion Gap 4 mmol/L; Blood Urea Nitrogen 13 mg/dL (7-17); Calcium 9.4 mg/dL (8.4-10.2); Carbon Dioxide 26 mmol/L (22-30); Chloride 105 mmol/L (98-107); Glucose 112 mg/dL (74-99); Non-African American GFR(CKD) >90 (>60 ml/min/1.73 sqM); Sodium 135 mmol/L (137-145)
[2020-12-17] MEDS: PRASUGREL 10 MG TAB PO SCH (08:34)
[2020-12-17] MEDS: ASPIRIN 81 MG PO SCH (08:34)
[2020-12-17] MEDS: lisinopriL 20 MG TAB PO SCH (08:35)
[2020-12-17 08:49] VITALS: BP 150/95; RESP 19; TEMP 97.8
[2020-12-17] MEDS ORDERED: METOPROLOL TARTRATE 50 MG TAB PO SCH (09:00)
--- NOTE | 2020-12-17 10:53 | PN ---
PROGRESS NOTE Mrs. Rick is a 45-year-old female who presented with an acute anterior wall myocardial infarction and was found to have evidence suggestive of spontaneous coronary artery dissection. She is doing well this morning. She is denying any chest pain. Her breathing is stable. She denies any dizziness or palpitations. She denies any nausea. She continues to be in sinus mechanism. She continues to be on aspirin once a day, Lipitor 80 mg daily, lisinopril 20 mg twice a day, metoprolol tartrate 25 mg twice a day, and Effient 10 mg daily. PHYSICAL EXAMINATION: Blood pressure 148/90 with a heart rate in the 70s. LUNGS: Clear. HEART: Regular rate and rhythm. S1, S2. No S3. No rub. ABDOMEN: Soft, nontender. Positive bowel sounds. No organomegaly. Obese. EXTREMITIES: No edema. LAB DATA: BUN and creatinine of 13 and 0.75. Potassium 4.0. IMPRESSION: 1. Acute anterior wall myocardial infarction with evidence consistent with spontaneous coronary artery dissection. 2. Hypertension. 3. Hyperlipidemia. RECOMMENDATIONS: I will increase the dose of metoprolol to 50 mg twice a day, increase her activity. She should be able to be discharged home today and followed as an outpatient with Dr. Mondragon. MMMOMOL / JUANCHON: [id number] /
[2020-12-17 13:13] VITALS: PULSE 90
--- NOTE | 2020-12-17 13:18 | P.DS ---
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 Pace. Hospital course This is a pleasant 45-year-old female who presents to the hospital with a history of left upper chest pain after being awakened from sleep and not feeling well. This started around 3 AM. brought her to the emergency room. Patient became unresponsive during x-ray and she was taken to the resuscitation bay and ACLS protocol was instituted she was in V. fib, CPR began and patient received 1 shock as well as 1 mg of EPI, there was ROSC, and after pt was alert and oriented at that point. 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 Cardiac catheterization showed a subtotally occluded distal LAD with findings suggestive of spontaneous dissection. Echogram this admission showed an EF of 30-35% with impairment of left ventricular systolic function with segmental wall motion abnormality involving the anteroapical and anteroseptal wall. Patient was admitted to the ICU where she was monitored. Additional labs this admission include a hemoglobin of 11.3, sodium 135, AST and ALT are mildly elevated. Troponin was positive at 15.3. Vital signs include a temperature of 97.8, heart rate 89 and blood pressure is 150/95 she is 94% on room air. 12/17/2020 Patient is evaluated in the ICU patient alert and oriented 3. Focal neurological exam is negative. She currently denies any chest pain, chest pressure, palpitations. She denies any cough shortness of breath fever or chills. Denies any nausea vomiting or diarrhea. She doesn't ambulate without difficulty. Lungs are clear to auscultation, S1-S2 auscultated. Patient is requesting a cholesterol panel we will give her a prescription for this outpatient and she can follow up with Dr. Pace in the office. Neurologically the patient for discharge and medication reconciliation has been completed. Thank you for allowing us to participate in the care of this patient. Patient Condition at Discharge: Fair Plan - Discharge Summary New Discharge Prescriptions: New Atorvastatin [Lipitor] 80 mg PO HS #30 tab Metoprolol Tartrate [Lopressor] 25 mg PO BID #60 tab Prasugrel [Effient] 10 mg PO DAILY 30 Days #30 tab lisinopriL [Zestril] 5 mg PO BID #30 tab Metoprolol Tartrate [Lopressor] 50 mg PO BID #180 tab lisinopriL [Zestril] 20 mg PO BID #180 tab Continue Aspirin [Adult Low Dose Aspirin EC] 81 mg PO DAILY #90 tablet. Discontinued Clopidogrel [Plavix] 75 mg PO DAILY #30 tab lisinopriL [Zestril] 5 mg PO BID #60 tab Discharge Medication List Aspirin [Adult Low Dose Aspirin EC] 81 mg PO DAILY #90 tablet. 07/15/15 [Rx] Atorvastatin [Lipitor] 80 mg PO HS #30 tab 12/15/20 [Rx] Metoprolol Tartrate [Lopressor] 25 mg PO BID #60 tab 12/15/20 [Rx] Prasugrel [Effient] 10 mg PO DAILY 30 Days #30 tab 12/15/20 [Rx] lisinopriL [Zestril] 5 mg PO BID #30 tab 12/15/20 [Rx] Metoprolol Tartrate [Lopressor] 50 mg PO BID #180 tab 12/17/20 [Rx] lisinopriL [Zestril] 20 mg PO BID #180 tab 12/17/20 [Rx] Follow up Appointment(s)/Referral(s): Ayaan Pace MD [Primary Care Provider] - 3 Days (OFFICE IS CURRENTLY CLOSED, PLEASE CALL TO MAKE APPOINTMENTS.) Chapo Mondragon MD [STAFF PHYSICIAN] - 1 Week (CARDIOLOGY'S OFFICE WILL CONTACT YOU WITH APPOINTMENT DATE AND TIME.) Ambulatory/Diagnostic Orders: Basic Metabolic Panel [LAB.AMB] Time Frame: 3 Days, Location: None Selected Miscellaneous Lab Order [LAB.AMB] Time Frame: 3 Days, Location: None Selected Patient Instructions/Handouts: *[facility] - After Heart Catheterization - 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
== END 2020-12-17 13:10 | disposition home or self-care (01) | DRG 280 ==
LOC: EC 03:11 → 2SICU 04:21
PROVIDERS: ADMIT Family Medicine; ATTEND Family Medicine
PROC: B2111ZZ Fluoroscopy of Multiple Coronary Arteries using Low Osmolar Contrast (ICD-10-PCS; 2020-12-14)
PROC: 5A12012 Performance of Cardiac Output, Single, Manual (ICD-10-PCS; 2020-12-14)
PROC: 4A023N7 Measurement of Cardiac Sampling and Pressure, Left Heart, Percutaneous Approach (ICD-10-PCS; principal; 2020-12-14 04:31)
DX: I21.09 ST elevation (STEMI) myocardial infarction involving other coronary artery of anterior wall (principal); I49.01 Ventricular fibrillation; R57.0 Cardiogenic shock; I25.42 Coronary artery dissection; I47.2 Ventricular tachycardia; I25.2 Old myocardial infarction; Z20.822 Contact with and (suspected) exposure to COVID-19; R74.8 Abnormal levels of other serum enzymes; I25.10 Atherosclerotic heart disease of native coronary artery without angina pectoris; I95.9 Hypotension, unspecified; M06.9 Rheumatoid arthritis, unspecified; E78.5 Hyperlipidemia, unspecified; I10 Essential (primary) hypertension; Z79.02 Long term (current) use of antithrombotics/antiplatelets; Z79.82 Long term (current) use of aspirin; Z79.899 Other long term (current) drug therapy; Z98.51 Tubal ligation status; Z90.49 Acquired absence of other specified parts of digestive tract
CPT/HCPCS: 36415; 71045; 80048; 80053; 82550; 82553; 83735; 84484; 85025; 85027; 85379; 85610; 85730; 87635; 93005; 93306; 93458; 96374; 96375; 99285

== ENCOUNTER → 2021-03-29 | Outpatient (CLI) | payer BC ==
[2021-03-30 12:15] LABS: Coronavirus SARS CoV-2 Detected (Not Detected)
== END | disposition home or self-care (01) ==
LOC: LABWHC1 13:07
PROVIDERS: ATTEND Family Medicine
DX: U07.1 COVID-19 (principal)
CPT/HCPCS: U0003; C9803; U0005

== ENCOUNTER 2021-04-08 19:58 | Emergency (ER) | payer BC ==
[2021-04-08] MEDS ORDERED: ACETAMINOPHEN TAB 500 MG TAB PO STA (20:49)
[2021-04-08] MEDS ORDERED: SODIUM CHLORIDE 0.9% 1,000 ML IV STA (21:55)
[2021-04-08] MEDS ORDERED: IBUPROFEN 800 MG TAB PO STA (22:05)
--- NOTE | 2021-04-08 22:34 | ED ---
General Adult HPI - General Chief complaint: Shortness of Breath Stated complaint: GAVIN-Covid+ Time Seen by Provider: 04/08/21 20:49 Source: patient, RN notes reviewed, old records reviewed Mode of arrival: ambulatory Limitations: no limitations - History of Present Illness Initial comments: Patient is a 45-year-old female with past medical history remarkable for cardiac disease, hypertension, [place] who was not vaccinated for COVID-19 presents to the emergency department 10 days after being diagnosed with COVID-19, which is when her symptoms started. States she's been having fatigue, headaches, joint pain, fevers, chills, cough. She states that she chest to take Advil, but doesn't seem to help. Isn't sure what else to do. She states she feels miserable. Denies any nausea, vomiting, diarrhea. Has no other acute complaints at this time. Tolerating PO intake. Covid testing was done here. She did not receive monoclonal antibodies at that time. Presents emergency department over further concerns for her current symptoms.Patient was evaluated when she was placed in a room. - Related Data Previous Rx's Medication Instructions Recorded Aspirin [Adult Low Dose Aspirin EC] 81 mg PO DAILY #90 tablet. 07/15/15 Atorvastatin [Lipitor] 80 mg PO HS #30 tab 12/15/20 Metoprolol Tartrate [Lopressor] 25 mg PO BID #60 tab 12/15/20 Prasugrel [Effient] 10 mg PO DAILY 30 Days #30 tab 12/15/20 lisinopriL [Zestril] 5 mg PO BID #30 tab 12/15/20 Metoprolol Tartrate [Lopressor] 50 mg PO BID #180 tab 12/17/20 lisinopriL [Zestril] 20 mg PO BID #180 tab 12/17/20 Albuterol Inhaler [Ventolin Hfa 1 puff INHALATION RT-QID #8 gm 04/08/21 Inhaler] Dexamethasone [Decadron] 6 mg PO DAILY 7 Days #7 tablet 04/08/21 Ibuprofen [Motrin] 800 mg PO Q8H PRN 7 Days #21 tab 04/08/21 Allergies Allergy/AdvReac Type Severity Reaction Status Date / Time No Known Allergies Allergy Verified 04/08/21 20:31 Review of Systems ROS Statement: Those systems with pertinent positive or pertinent negative responses have been documented in the HPI. Review of Systems: CONST: Endorses fever, chills EYES: Denies blurry vision ENT: Versus nasal congestion C/V: Denies Chest pain RESP: Endorses cough GI: Denies abdominal pain : Denies dysuria SKIN: Denies rash. MSK: Denies joint pain. NEURO: Denies headache ROS Other: All systems not noted in ROS Statement are negative. Past Medical History Past Medical History: Coronary Artery Disease (CAD), Chest Pain / Angina, Hypertension, Myocardial Infarction ([place]), Rheumatoid Arthritis ([place]) Last Myocardial Infarction Date:: 12/14/20 History of Any Multi-Drug Resistant Organisms: None Reported Past Surgical History: Cholecystectomy, Heart Catheterization, Tubal Ligation Additional Past Surgical History / Comment(s): clear heart cath on 07/14/2015 Past Anesthesia/Blood Transfusion Reactions: No Reported Reaction Past Psychological History: No Psychological Hx Reported Smoking Status: Never smoker Past Alcohol Use History: None Reported Past Drug Use History: None Reported - Past Family History Mother Family Medical History: Cancer Additional Family Medical History / Comment(s): breast [place] General Exam - General Exam Comments Initial Comments: General: Patient is febrile, in mild distress. HEAD: Normal with no signs of head trauma. EYES: PERRLA, EOMI, conjunctiva normal, no discharge. ENT: Hearing grossly intact, normal oropharynx. RESPIRATORY: Clear breath sounds bilaterally. No wheezes, rales, or rhonchi. No hypoxia. No increased work of breathing. C/V: Patient is tachycardic with a regular rhythm. S1 and S2 auscultated. Peripheral pulses 2+ and intact throughout. Tachycardia is improved in the room. She is currently afebrile which is likely the source. ABD: Abd is soft, nontender, nondistended EXT: Normal range of motion, no obvious deformity SKIN: No rashes or lesions observed on exposed skin. NEURO: Alert and oriented 4. Limitations: no limitations Course Vital Signs 04/08/21 04/09/21 20:31 01:38 Temperature 102.2 F H 98.0 F Pulse Rate 110 H 76 Respiratory 22 18 Rate Blood Pressure 131/67 125/85 O2 Sat by Pulse 95 95 Oximetry Medical Decision Making - Medical Decision Making Based on the patient's presentation and physical exam, she is COVID-19 positive. She has a cardiac history. She is on day 10 of symptoms 10 days after testing positive. She does meet monoclonal antibody therapy requirements. She did consent to therapy. We'll also provide her with antipyretics. She will receive a liter fluid bolus. She is not requiring oxygen. She has no other red flag signs of this time. I believe it is safer to receive the monoclonal therapy be discharged home. I discussed at length with her that I would discharge her with a dose of steroids as well as albuterol inhaler. It may be weeks before she fe els fully back to normal. She expressed understanding. She can continue to use Tylenol as well as Motrin for her fevers at home. Patient tolerated therapy well. She'll be discharged home. Vital signs are improved at this time. We discussed quarantine. I will provide the patient with a prescription for Decadron, albuterol, Motrin. I instructed the patient to follow up with their PCP in the next 3 days . I explained that the patient should return to the emergency department if they experience any worsening symptoms. Strict return precautions were discussed with the patient. The patient expressed understanding of these instructions. I answered all questions that the patient had. The patient was discharged home in fair condition with their prescriptions and follow up information. Disposition Clinical Impression: COVID-19 virus infection Disposition: HOME SELF-CARE Condition: Fair Instructions (If sedation given, give patient instructions): Coronavirus Disease 2019 (COVID-19) Prescriptions: Dexamethasone [Decadron] 6 mg PO DAILY 7 Days #7 tablet Ibuprofen [Motrin] 800 mg PO Q8H PRN 7 Days #21 tab PRN Reason: Fever Albuterol Inhaler [Ventolin Hfa Inhaler] 1 puff INHALATION RT-QID #8 gm Is patient prescribed a controlled substance at d/c from ED?: No Referrals: Ayaan Pace MD [Primary Care Provider] - 1-2 days
[2021-04-08] MEDS ORDERED: SOTROVIMAB (EUA) 500 MG in SODIUM CHLORIDE 0.9% 100 ML IVPB ONE (23:00)
[2021-04-08] MEDS ORDERED: SODIUM CHLORIDE 0.9% 50 ML IVPB ONE (23:00)
[2021-04-09 01:39] VITALS: BP 125/85; PULSE 76; RESP 18; TEMP 98
== END 2021-04-09 01:43 | disposition home or self-care (01) ==
LOC: EC 19:58
DX: U07.1 COVID-19 (principal); I10 Essential (primary) hypertension; I25.2 Old myocardial infarction
CPT/HCPCS: 96365; 96361; 99284; Q0247

== ENCOUNTER 2021-04-14 03:57 | Observation (INO) | payer BC ==
--- NOTE | 2021-04-14 04:41 | XR ---
EXAMINATION TYPE: XR chest 2V DATE OF EXAM: 04/14/2021 COMPARISON: 12/14/2020 HISTORY: Chest pain TECHNIQUE: FINDINGS: Heart and mediastinum are normal. There is some patchy peripheral bilateral pulmonary infil trates. There are chest leads. Costophrenic angles are clear. Bony thorax is intact. IMPRESSION: Bilateral pulmonary infiltrates. This appears new compared to old exam and could relate t o some mild multifocal pneumonia.
[2021-04-14] MEDS ORDERED: NITROGLYCERIN SL TABS 0.4 MG TAB SUBLINGUAL STA (04:42)
[2021-04-14 04:54] LABS: ALT 31 U/L (4-34); AST 29 U/L (14-36); African American GFR (CKD) >90 (>60 ml/min/1.73 sqM); Alkaline Phosphatase 112 U/L (38-126); Anion Gap 6 mmol/L; Blood Urea Nitrogen 15 mg/dL (7-17); Calcium 8.8 mg/dL (8.4-10.2); Carbon Dioxide 23 mmol/L (22-30); Chloride 110 mmol/L (98-107); Glucose 109 mg/dL (74-99); Magnesium 1.4 mg/dL (1.6-2.3); Non-African American GFR(CKD) >90 (>60 ml/min/1.73 sqM); Potassium 3.3 mmol/L (3.5-5.1); Sodium 139 mmol/L (137-145); Total Bilirubin 0.6 mg/dL (0.2-1.3); Total Protein 5.9 g/dL (6.3-8.2)
[2021-04-14 05:05] LABS: Basophils % (A) 1 %; Eosinophils # (A) 0.1 k/uL (0-0.7); Eosinophils % (A) 2 %; HCT 32.5 % (34.0-46.0); HGB 11.2 gm/dL (11.4-16.0); Lymphocytes # (A) 2.1 k/uL (1.0-4.8); Lymphocytes % (A) 32 %; MCH 28.6 pg (25.0-35.0); MCHC 34.5 g/dL (31.0-37.0); Mean Platelet Volume 8.5; Monocytes # (A) 0.3 k/uL (0-1.0); Monocytes % (A) 5 %; Neutrophils # (A) 3.8 k/uL (1.3-7.7); Neutrophils % (A) 59 %; Platelet Count 266 k/uL (150-450); RBC 3.91 m/uL (3.80-5.40); RDW 13.8 % (11.5-15.5); WBC 6.4 k/uL (3.8-10.6)
[2021-04-14 05:11] LABS: INR 0.9 (<1.2); Partial Thromboplastin Time 22.8 sec (22.0-30.0)
--- NOTE | 2021-04-14 08:27 | P.HPIM ---
History of Present Illness H&P Date: 04/14/21 Chief Complaint: Angina This is a history of physical 45-year-old white female with known history of coronary disease complaining of anginal type symptoms this morning. As severe chest pain with radiation and some nausea but no significant diaphoresis. No fever or chills she relates it to some events of previous stent placement when she had non-ST elevation myocardial infarction. Enzymatic elevation is not noted at this time. Patient Relations Specialist consulted. No voiding difficulties Review of Systems Constitutional: Denies chills, Denies fever Eyes: denies blurred vision, denies pain Ears, nose, mouth and throat: Denies headache, Denies sore throat Cardiovascular: Reports chest pain, Reports decreased exercise tolerance, Denies shortness of breath Respiratory: Denies cough Gastrointestinal: Denies abdominal pain, Denies diarrhea, Denies nausea, Denies vomiting Genitourinary: Denies dysuria, Denies hematuria Musculoskeletal: Denies myalgias Past Medical History Past Medical History: Coronary Artery Disease (CAD), Chest Pain / Angina, Hypertension, Myocardial Infarction ([place]), Rheumatoid Arthritis ([place]) Last Myocardial Infarction Date:: 12/14/20 History of Any Multi-Drug Resistant Organisms: None Reported Past Surgical History: Cholecystectomy, Heart Catheterization, Tubal Ligation Additional Past Surgical History / Comment(s): clear heart cath on 07/14/2015 Past Anesthesia/Blood Transfusion Reactions: No Reported Reaction Past Psychological History: No Psychological Hx Reported Smoking Status: Never smoker Past Alcohol Use History: None Reported Past Drug Use History: None Reported - Past Family History Mother Family Medical History: Cancer Additional Family Medical History / Comment(s): breast CA Medications and Allergies Home Medications Medication Instructions Recorded Confirmed Type Aspirin [Adult Low Dose Aspirin EC] 81 mg PO DAILY #90 tablet. 07/15/15 04/14/21 Rx Prasugrel [Effient] 10 mg PO DAILY 30 Days #30 tab 12/15/20 04/14/21 Rx Metoprolol Tartrate [Lopressor] 50 mg PO BID #180 tab 12/17/20 04/14/21 Rx lisinopriL [Zestril] 20 mg PO BID #180 tab 12/17/20 04/14/21 Rx Albuterol Inhaler [Ventolin Hfa 1 puff INHALATION RT-QID #8 gm 04/08/21 04/14/21 Rx Inhaler] Dexamethasone [Decadron] 6 mg PO DAILY 7 Days #7 tablet 04/08/21 04/14/21 Rx Ibuprofen [Motrin] 800 mg PO Q8H PRN 7 Days #21 tab 04/08/21 04/14/21 Rx Allergies Allergy/AdvReac Type Severity Reaction Status Date / Time No Known Allergies Allergy Verified 04/14/21 08:02 Physical Exam Vitals: Vital Signs Temp Pulse Resp BP Pulse Ox 04/14/21 07:37 64 18 144/86 99 04/14/21 07:25 60 18 144/86 100 04/14/21 06:00 65 22 146/84 98 04/14/21 05:20 61 20 148/85 99 04/14/21 04:17 97.9 F 63 22 153/91 97 Intake and Output 04/13/21 04/14/21 04/14/21 22:59 06:59 14:59 Other: Weight 113.398 kg - Constitutional General appearance: no acute distress - EENT Eyes: EOMI - Neck Neck: no lymphadenopathy - Respiratory Respiratory: bilateral: CTA - Cardiovascular Rhythm: regular Heart sounds: normal: S1, S2 Abnormal Heart Sounds: no S3 Gallop - Gastrointestinal General gastrointestinal: soft, no tenderness - Psychiatric Psychiatric: A&O x's 3 Results CBC & Chem 7: 04/14/21 04:59 04/14/21 04:26 Labs: Abnormal Lab Results - Last 24 Hours (Table) 04/14/21 04/14/21 Range/Units 04:26 04:59 Hgb 11.2 L (11.4-16.0) gm/dL Hct 32.5 L (34.0-46.0) % Potassium 3.3 L (3.5-5.1) mmol/L Chloride 110 H (98-107) mmol/L Glucose 109 H (74-99) mg/dL Magnesium 1.4 L (1.6-2.3) mg/dL Total Protein 5.9 L (6.3-8.2) g/dL Albumin 3.0 L (3.5-5.0) g/dL Assessment and Plan (1) Non-ST elevation myocardial infarction (NSTEMI) Current Visit: No Status: Acute Code(s): I21.4 - NON-ST ELEVATION (NSTEMI) MYOCARDIAL INFARCTION SNOMED Code(s): 75484231 (2) Reflux esophagitis Current Visit: No Status: Chronic Code(s): K21.0 - GASTRO-ESOPHAGEAL REFLUX DISEASE WITH ESOPHAG * DO NOT USE * SNOMED Code(s): 715261938 (3) LAD stenosis Current Visit: No Status: Acute Code(s): I25.10 - ATHSCL HEART DISEASE OF [place] CORONARY ARTERY W/O ANG PCTRS SNOMED Code(s): 383830035 (4) Chest pain Current Visit: Yes Status: Acute Code(s): R07.9 - CHEST PAIN, UNSPECIFIED SNOMED Code(s): 15968512 Plan: Rule out myocardial infarction. Reconcile home medications. Patient Relations Specialist consulted. See orders otherwise.
[2021-04-14] MEDS: PRASUGREL 10 MG TAB PO SCH (09:16)
--- NOTE | 2021-04-14 09:24 | P.CRDCN ---
History of Present Illness Consult date: 04/14/21 History of present illness: History of Present Illness: The patient is a 45-year-old female who presents with symptoms of chest discomfort. She recently had COVID-19 infection. She was in the hospital in November 2020 and underwent cardiac catheterization cause of acute myocardial infarction and was found to have evidence suggested of spontaneous coronary artery dissection in the distal LAD and was treated medically. Her echocardiogram at that time showed impairment in the systolic function. She has been followed by Dr. Mondragon. Her discomfort was at rest, not activity related but there was some improvement with nitroglycerin sublingually. She also had cardiac catheterization in 2016 and at that time had no evidence of high-grade stenosis. Patient denies any peripheral edema, she has no significant dizziness or palpitations but she feels dyspneic. She has been having discomfort on and off since her event. At the time of her cardiac catheterization she had no significant obstructive disease in the RCA or left circumflex. She has a history of hyperlipidemia, she is a nonsmoker nondiabetic Review of Systems: Respiratory: No history of asthma, bronchitis . She has symptoms of dyspnea on exertion with recent cough related to her COVID-19 infection. GI: She had nausea and vomiting today. No history of peptic ulcer disease. No recent GI bleed. : No hematuria or dysuria. Nervous System: No stroke or seizure. Physical Examination: 45-year-old female alert and oriented no apparent distress, pressure 144/80 with a heart rate in the 60 Head: Normocephalic. Eyes: Sclerae nonicteric. Neck: Good carotid upstroke, no bruit, no jugular venous distention. Lungs: Clear to auscultation. Heart: Regular rate and rhythm, S1-S2, no S3, no rub. No murmur. Abdomen: Soft nontender, positive bowel sounds no organomegaly. Extremities: No edema, intact distal pulses. Labs: Hemoglobin 11.2, potassium 3.3, BUN and creatinine 15 and 0.72 troponin less th an 0.012. Chest x-ray shows bilateral pulmonary infiltrate Impression: 1. Chest discomfort no evidence of acute coronary syndrome in a patient with known history of spontaneous coronary artery dissection in December 2020 2. Recent COVID-19 infection 3. Prior history of cardiomyopathy Plan: 1. Continue home medication 2. Obtain an echocardiogram with Doppler 3. Follow cardiac enzymes 4. Add oral nitrate 5. Depending on her progress further recommendations will be made. Thank you for this consult we will follow with you. Past Medical History Past Medical History: Coronary Artery Disease (CAD), Chest Pain / Angina, Hypertension, Myocardial Infarction ([place]), Rheumatoid Arthritis ([place]) Last Myocardial Infarction Date:: 12/14/20 History of Any Multi-Drug Resistant Organisms: None Reported Past Surgical History: Cholecystectomy, Heart Catheterization, Tubal Ligation Additional Past Surgical History / Comment(s): clear heart cath on 07/14/2015 Past Anesthesia/Blood Transfusion Reactions: No Reported Reaction Past Psychological History: No Psychological Hx Reported Smoking Status: Never smoker Past Alcohol Use History: None Reported Past Drug Use History: None Reported - Past Family History Mother Family Medical History: Cancer Additional Family Medical History / Comment(s): breast [place] Medications and Allergies Home Medications Medication Instructions Recorded Confirmed Type Aspirin [Adult Low Dose Aspirin EC] 81 mg PO DAILY #90 tablet. 07/15/15 04/14/21 Rx Prasugrel [Effient] 10 mg PO DAILY 30 Days #30 tab 12/15/20 04/14/21 Rx Metoprolol Tartrate [Lopressor] 50 mg PO BID #180 tab 12/17/20 04/14/21 Rx lisinopriL [Zestril] 20 mg PO BID #180 tab 12/17/20 04/14/21 Rx Albuterol Inhaler [Ventolin Hfa 1 puff INHALATION RT-QID #8 gm 04/08/21 04/14/21 Rx Inhaler] Dexamethasone [Decadron] 6 mg PO DAILY 7 Days #7 tablet 04/08/21 04/14/21 Rx Ibuprofen [Motrin] 800 mg PO Q8H PRN 7 Days #21 tab 04/08/21 04/14/21 Rx Allergies Allergy/AdvReac Type Severity Reaction Status Date / Time No Known Allergies Allergy Verified 04/14/21 08:02 Physical Exam Vitals: Vital Signs Temp Pulse Resp BP Pulse Ox 04/14/21 07:37 64 18 144/86 99 04/14/21 07:25 60 18 144/86 100 04/14/21 06:00 65 22 146/84 98 04/14/21 05:20 61 20 148/85 99 04/14/21 04:17 97.9 F 63 22 153/91 97 Intake and Output 04/13/21 04/14/21 04/14/21 22:59 06:59 14:59 Other: Weight 113.398 kg Results 04/14/21 04:59 04/14/21 04:26 Cardiac Enzymes 04/14/21 04/14/21 Range/Units 04:26 04:26 AST 29 (14-36) U/L Troponin I <0.012 (0.000-0.034) ng/mL Coagulation 04/14/21 Range/Units 04:26 PT 10.0 (9.0-12.0) sec APTT 22.8 (22.0-30.0) sec CBC 04/14/21 Range/Units 04:59 WBC 6.4 (3.8-10.6) k/uL RBC 3.91 (3.80-5.40) m/uL Hgb 11.2 L (11.4-16.0) gm/dL Hct 32.5 L (34.0-46.0) % Plt Count 266 (150-450) k/uL Comprehensive Metabolic Panel 04/14/21 Range/Units 04:26 Sodium 139 (137-145) mmol/L Potassium 3.3 L (3.5-5.1) mmol/L Chloride 110 H (98-107) mmol/L Carbon Dioxide 23 (22-30) mmol/L BUN 15 (7-17) mg/dL Creatinine 0.72 (0.52-1.04) mg/dL Glucose 109 H (74-99) mg/dL Calcium 8.8 (8.4-10.2) mg/dL AST 29 (14-36) U/L ALT 31 (4-34) U/L Alkaline Phosphatase 112 (38-126) U/L Total Protein 5.9 L (6.3-8.2) g/dL Albumin 3.0 L (3.5-5.0) g/dL Current Medications Generic Name Dose Route Start Last Admin Trade Name Freq PRN Reason Stop Dose Admin Aspirin 81 mg 04/15/21 09:00 Aspirin 81 Mg PO DAILY [facility] Lisinopril 20 mg 04/14/21 21:00 Lisinopril 20 Mg Tab PO BID [facility] Metoprolol Tartrate 50 mg 04/14/21 21:00 Metoprolol Tartrate 50 Mg Tab PO BID [facility] Prasugrel 10 mg 04/14/21 09:00 04/14/21 09:16 Prasugrel 10 Mg Tab PO 10 mg DAILY [place] Administration Intake and Output 04/13/21 04/14/21 04/14/21 22:59 06:59 14:59 Other: Weight 113.398 kg 04/14/21 04:59 04/14/21 04:26
[2021-04-14] MEDS ORDERED: HEPARIN SODIUM 1,000 UN/ML (10ML VL) IV ONE (09:57)
[2021-04-14] MEDS: HEPARIN SOD,PORK IN 0.45% NACL 25,000 UNIT in 0.45% NACL 1 250ML.BAG IV SCH (10:12)
[2021-04-14] MEDS: ISOSORBIDE MONONITRATE ER 30 MG TAB.ER.24H PO SCH (10:17)
[2021-04-14 11:12] LABS: Basophils # (A) 0.1 k/uL (0-0.2); Basophils % (A) 1 %; Eosinophils # (A) 0.1 k/uL (0-0.7); Eosinophils % (A) 1 %; HCT 32.9 % (34.0-46.0); HGB 11.2 gm/dL (11.4-16.0); Lymphocytes # (A) 2.4 k/uL (1.0-4.8); Lymphocytes % (A) 33 %; MCH 28.9 pg (25.0-35.0); MCHC 34.1 g/dL (31.0-37.0); MCV 84.8 fL (80.0-100.0); Mean Platelet Volume 8.6; Monocytes # (A) 0.3 k/uL (0-1.0); Monocytes % (A) 5 %; Neutrophils # (A) 4.4 k/uL (1.3-7.7); Neutrophils % (A) 59 %; Platelet Count 287 k/uL (150-450); RBC 3.88 m/uL (3.80-5.40); RDW 13.3 % (11.5-15.5); WBC 7.4 k/uL (3.8-10.6)
[2021-04-14 11:25] LABS: INR 0.9 (<1.2); Partial Thromboplastin Time 47.5 sec (22.0-30.0); Prothrombin Time 10.3 sec (9.0-12.0)
--- NOTE | 2021-04-14 11:48 | ECHOF ---
Referral Reason: MEASUREMENTS -------- HEIGHT: 167.6 cm WEIGHT: 113.4 kg BP: 144/86 RVIDd: 2.7 cm (< 3.3) IVSd: 1.3 cm (0.6 - 1.1) LVIDd: 5.1 cm (3.9 - 5.3) LVPWd: 1.2 cm (0.6 - 1.1) IVSs: 1.7 cm LVIDs: 3.1 cm LVPWs: 1.5 cm LA Diam: 3.7 cm (2.7 - 3.8) LAESV Index (A-L): 34.05 ml/m Ao Diam: 3.4 cm (2.0 - 3.7) AV Cusp: 2.3 cm (1.5 - 2.6) MV EXCURSION: 12.495 mm (> 18.000) MV EF SLOPE: 64 mm/s (70 - 150) EPSS: 0.6 cm MV E Hill: 0.89 m/s MV DecT: 245 ms MV A Hill: 0.88 m/s MV E/A Ratio: 1.01 FINDINGS -------- Sinus rhythm. This was a technically adequate study. The left ventricular size is normal. There is borderline concentric left ventricular hypertrophy. Overall left ventricular systolic function is normal with, an EF between 55 - 60 %. The right ventricle is normal in size. LA is midly dilated 29-33ml/m2. The right atrial size is normal. The aortic valve is trileaflet, and appears structurally normal. No aortic stenosis or regurgitation. The mitral valve is normal. Mild mitral regurgitation is present. The tricuspid valve appears structurally normal. Trace tricuspid regurgitation present. There is no pulmonic regurgitation present. The aortic root size is normal. There is no pericardial effusion. CONCLUSIONS -------- 1. There is borderline concentric left ventricular hypertrophy. 2. Overall left ventricular systolic function is normal with, an EF between 55 - 60 %. 3. LA is midly dilated 29-33ml/m2. 4. The aortic valve is trileaflet, and appears structurally normal. No aortic stenosis or regurgitati on. 5. Mild mitral regurgitation is present. 6. Trace tricuspid regurgitation present. 7. There is no pericardial effusion. FLOWER MAKER: Nubia Padron RDCS
--- NOTE | 2021-04-14 11:50 | ED ---
Chest Pain HPI - General Chief Complaint: Chest Pain Stated Complaint: Chest Pain Time Seen by Provider: 04/14/21 04:36 Source: patient, family, EMS Mode of arrival: EMS Limitations: no limitations - History of Present Illness Initial Comments: This patient is a 45-year-old woman with history of coronary artery dissection, who states that tonight she was attempting to rest when she developed substernal pain that radiates mainly to her left arm but she also feels a little bit in the neck. She was concerned because it reminded her of the pain she had when she had the coronary artery dissection. Patient states that early this month she also was diagnosed with Covid and was concerned that this may be related to that. MD Complaint: chest pain Onset/Timin -: hour(s) Onset: during rest, awoke with symptoms Pain Location: substernal Pain Radiation: LUE, neck Severity: moderate Quality: aching Consistency: constant Improves With: nitroglycerin Worsens With: nothing Anginal Symptoms: dyspnea Treatments Prior to Arrival: nitroglycerin - Related Data Previous Rx's Medication Instructions Recorded Aspirin [Adult Low Dose Aspirin EC] 81 mg PO DAILY #90 tablet. 07/15/15 Prasugrel [Effient] 10 mg PO DAILY 30 Days #30 tab 12/15/20 Metoprolol Tartrate [Lopressor] 50 mg PO BID #180 tab 12/17/20 lisinopriL [Zestril] 20 mg PO BID #180 tab 12/17/20 Albuterol Inhaler [Ventolin Hfa 1 puff INHALATION RT-QID #8 gm 04/08/21 Inhaler] Dexamethasone [Decadron] 6 mg PO DAILY 7 Days #7 tablet 04/08/21 Ibuprofen [Motrin] 800 mg PO Q8H PRN 7 Days #21 tab 04/08/21 Allergies Allergy/AdvReac Type Severity Reaction Status Date / Time No Known Allergies Allergy Verified 04/14/21 08:02 Review of Systems ROS Statement: Those systems with pertinent positive or pertinent negative responses have been documented in the HPI. ROS Other: All systems not noted in ROS Statement are negative. Constitutional: Denies: fever, chills Respiratory: Reports: cough. Denies: dyspnea, wheezes, hemoptysis Cardiovascular: Reports: chest pain. Denies: palpitations, orthopnea, edema, syncope Gastrointestinal: Denies: abdominal pain, nausea, vomiting, diarrhea Genitourinary: Denies: dysuria, hematuria Musculoskeletal: Denies: back pain Skin: Denies: rash Neurological: Denies: headache, weakness, numbness EKG Findings - EKG Results: EKG: interpreted by ADONAY, sinus rhythm (Rate 72 bpm), normal axis - Blocks, [place], Hypertrophy, ST Abn: QRS axis and voltage: low voltage (<0.5 MV total QRS and <1.0 MV in each precordial lead) Repolarization changes or abnormalities: nonspecific abnormality, ST segment, and/or T wave Past Medical History Past Medical History: Coronary Artery Disease (CAD), Chest Pain / Angina, Hypertension, Myocardial Infarction ([place]), Rheumatoid Arthritis ([place]) Last Myocardial Infarction Date:: 12/14/20 History of Any Multi-Drug Resistant Organisms: None Reported Past Surgical History: Cholecystectomy, Heart Catheterization, Tubal Ligation Additional Past Surgical History / Comment(s): clear heart cath on 07/14/2015 Past Anesthesia/Blood Transfusion Reactions: No Reported Reaction Past Psychological History: No Psychological Hx Reported Smoking Status: Never smoker Past Alcohol Use History: None Reported Past Drug Use History: None Reported - Past Family History Mother Family Medical History: Cancer Additional Family Medical History / Comment(s): breast CA General Exam Limitations: no limitations General appearance: alert, in no apparent distress Head exam: Present: atraumatic, normocephalic Eye exam: Present: normal appearance. Absent: scleral icterus, conjunctival injection ENT exam: Present: normal oropharynx Neck exam: Present: normal inspection Respiratory exam: Present: normal lung sounds bilaterally. Absent: respiratory distress, wheezes, rales, rhonchi, stridor Cardiovascular Exam: Present: regular rate, normal rhythm, normal heart sounds. Absent: systolic murmur, diastolic murmur, rubs, gallop GI/Abdominal exam: Present: soft. Absent: distended, tenderness, guarding, rebound, rigid, mass Extremities exam: Present: normal inspection, normal capillary refill. Absent: pedal edema, calf tenderness Back exam: Present: normal inspection. Absent: CVA tenderness (R), CVA tenderness (L) Neurological exam: Present: alert Skin exam: Present: warm, dry, intact, normal color. Absent: rash Course Vital Signs 04/14/21 04/14/21 04/14/21 04:17 05:20 06:00 Temperature 97.9 F Pulse Rate 63 61 65 Respiratory 22 20 22 Rate Blood Pressure 153/91 148/85 146/84 O2 Sat by Pulse 97 99 98 Oximetry 04/14/21 04/14/21 04/14/21 07:25 07:37 09:26 Temperature Pulse Rate 60 64 64 Respiratory 18 18 18 Rate Blood Pressure 144/86 144/86 149/89 O2 Sat by Pulse 100 99 97 Oximetry 04/14/21 04/14/21 10:00 11:14 Temperature Pulse Rate 65 77 Respiratory 18 16 Rate Blood Pressure 149/89 152/90 O2 Sat by Pulse 99 98 Oximetry [facility] Patient is 45-year-old woman with chest pain similar to that which she had during a coronary artery dissection. Her initial workup is negative with the pain is relieved with nitroglycerin therefore will observe patient on telemetry and have serial enzymes. Disposition Clinical Impression: Chest pain, Hypokalemia Disposition: ADMITTED IP TO THIS HOSP Condition: Good Is patient prescribed a controlled substance at d/c from ED?: No
[2021-04-14] MEDS: ACETAMINOPHEN TAB 325 MG TAB PO PRN (13:09)
[2021-04-14] MEDS ORDERED: IBUPROFEN 400 MG TAB PO PRN (16:20)
[2021-04-14] MEDS ORDERED: Potassium Replacement Protocol 1 EACH MISC MISCELLANE PRN (16:21)
[2021-04-14] MEDS: POTASSIUM CHLORIDE ER 20 MEQ TAB.ER PO SCH ×2 (17:02→18:02)
[2021-04-14] MEDS: HEPARIN SODIUM 1,000 UN/ML (10ML VL) IV PRN (17:21)
[2021-04-14 17:32] LABS: Chol/HDL Ratio 4.52 Ratio; LDL Cholesterol,Calculated 107.6 mg/dL (0.0-131.0)
[2021-04-14] MEDS: METOPROLOL TARTRATE 50 MG TAB PO SCH (20:41)
[2021-04-14] MEDS: lisinopriL 20 MG TAB PO SCH (20:41)
[2021-04-15] MEDS: HEPARIN SODIUM 1,000 UN/ML (10ML VL) IV PRN ×2 (01:21→22:52)
[2021-04-15 07:41] LABS: African American GFR (CKD) >90 (>60 ml/min/1.73 sqM); Anion Gap 1 mmol/L; Blood Urea Nitrogen 14 mg/dL (7-17); Calcium 8.9 mg/dL (8.4-10.2); Carbon Dioxide 24 mmol/L (22-30); Chloride 112 mmol/L (98-107); Glucose 93 mg/dL (74-99); Non-African American GFR(CKD) >90 (>60 ml/min/1.73 sqM); Potassium 3.8 mmol/L (3.5-5.1); Sodium 137 mmol/L (137-145)
[2021-04-15] MEDS: HEPARIN SOD,PORK IN 0.45% NACL 25,000 UNIT in 0.45% NACL 1 250ML.BAG IV SCH (08:15)
--- NOTE | 2021-04-15 08:21 | P.PN ---
Subjective Principal diagnosis: Chest pain/angina This continue present for 45-year-old white female with known history coronary artery disease and 7 a car to myocardial infarctions and stents who has yesterday developed chest pressure. She is asymptomatic today. Cardiology consult is noted with heparin started today. Objective - Vital Signs Vital signs: Vital Signs Temp 98 F 04/15/21 07:40 Pulse 75 04/15/21 07:40 Resp 18 04/15/21 07:40 BP 121/75 04/15/21 07:40 Pulse Ox 95 04/15/21 07:40 Intake & Output 04/14/21 04/15/21 04/15/21 18:59 06:59 18:59 Intake Total 71.326 178.674 Balance 71.326 178.674 Weight 113.398 kg Intake: Intake, IV Titration 71.326 178.674 Amount Heparin Sod,Pork in 0.45% 71.326 178.674 NaCl 25,000 unit In 0.45 % NaCl 1 250ml.bag @ 8. 818 UNITS/KG/HR 9.999 mls /hr IV .Q24H [facility] Rx#: [id number] Other: # Voids 0 # Bowel Movements 0 - Constitutional General appearance: Present: obese - EENT Eyes: Absent: abnormal pupil - Neck Neck: Absent: lymphadenopathy - Respiratory Respiratory: bilateral: diminished - Cardiovascular Rhythm: regular Heart sounds: normal: S1, S2 Abnormal Heart Sounds: Absent: S3 Gallop - Gastrointestinal General gastrointestinal: Present: soft. Absent: tenderness - Integumentary Integumentary: Absent: cellulitis - Labs CBC & Chem 7: 04/14/21 10:55 04/15/21 06:39 Labs: Abnormal Lab Results - Last 24 Hours (Table) 04/14/21 04/14/21 04/14/21 Range/Units 08:06 10:55 10:55 Hgb 11.2 L (11.4-16.0) gm/dL Hct 32.9 L (34.0-46.0) % APTT (22.0-30.0) sec Chloride (98-107) mmol/L Troponin I 0.039 H* (0.000-0.034) ng/mL Triglycerides 159.00 H (0.00-149.00) mg/dL HDL Cholesterol 39.60 L (40.00-60.00) mg/dL 04/14/21 04/14/21 04/14/21 Range/Units 10:55 15:47 23:33 Hgb (11.4-16.0) gm/dL Hct (34.0-46.0) % APTT 47.5 H 30.5 H 41.2 H (22.0-30.0) sec Chloride (98-107) mmol/L Troponin I (0.000-0.034) ng/mL Triglycerides (0.00-149.00) mg/dL HDL Cholesterol (40.00-60.00) mg/dL 04/15/21 04/15/21 Range/Units 06:39 06:39 Hgb (11.4-16.0) gm/dL Hct (34.0-46.0) % APTT 55.9 H (22.0-30.0) sec Chloride 112 H (98-107) mmol/L Troponin I (0.000-0.034) ng/mL Triglycerides (0.00-149.00) mg/dL HDL Cholesterol (40.00-60.00) mg/dL Assessment and Plan (1) Non-ST elevation myocardial infarction (NSTEMI) Current Visit: No Status: Acute Code(s): I21.4 - NON-ST ELEVATION (NSTEMI) MYOCARDIAL INFARCTION SNOMED Code(s): 32305865 (2) Reflux esophagitis Current Visit: No Status: Chronic Code(s): K21.0 - GASTRO-ESOPHAGEAL REFLUX DISEASE WITH ESOPHAG * DO NOT USE * SNOMED Code(s): 987704848 (3) LAD stenosis Current Visit: No Status: Acute Code(s): I25.10 - ATHSCL HEART DISEASE OF [place] RESERVATION CORONARY ARTERY W/O ANG PCTRS SNOMED Code(s): 620440466 (4) Chest pain Current Visit: Yes Status: Acute Code(s): R07.9 - CHEST PAIN, UNSPECIFIED SNOMED Code(s): 82296397 Plan: Echocardiogram reviewed Reconcile home medications. Visitor Services Coordinator consulted. See orders otherwise. Hopefully we can discharge in the next 24 hours Time with Patient: Greater than 30
[2021-04-15] MEDS: ATORVASTATIN 40 MG TAB PO SCH (08:28)
[2021-04-15] MEDS: ISOSORBIDE MONONITRATE ER 30 MG TAB.ER.24H PO SCH (08:28)
[2021-04-15] MEDS: PRASUGREL 10 MG TAB PO SCH (08:28)
[2021-04-15] MEDS: lisinopriL 20 MG TAB PO SCH ×2 (08:28→22:50)
[2021-04-15] MEDS: ASPIRIN 81 MG PO SCH (08:29)
[2021-04-15] MEDS: METOPROLOL TARTRATE 50 MG TAB PO SCH ×2 (08:29→22:50)
[2021-04-15] MEDS ORDERED: ASPIRIN 325 MG TAB PO SCH (09:00)
[2021-04-15 09:41] LABS: Basophils # (A) 0.04 X 10*3/uL (0.00-0.10); Basophils % (A) 0.5 %; Eosinophils # (A) 0.15 X 10*3/uL (0.04-0.35); Eosinophils % (A) 1.8 %; HCT 33.3 % (37.2-46.3); HGB 10.6 g/dL (12.0-15.0); Immature Grans, Automated 0.6 %; Lymphocytes # (A) 2.45 X 10*3/uL (0.90-5.00); Lymphocytes % (A) 29.5 %; MCH 27.1 pg (27.0-32.0); MCHC 31.8 g/dL (32.0-37.0); MCV 85.2 fL (80.0-97.0); Mean Platelet Volume 11.4 fL (9.5-12.2); Monocytes # (A) 0.54 X 10*3/uL (0.20-1.00); Monocytes % (A) 6.5 %; NRBC Per 100 WBC 0 /100 WBCS (0.0-0.0); Neutrophils # (A) 5.07 X 10*3/uL (1.80-7.70); Neutrophils % (A) 61.1 %; Platelet Count 254 X 10*3/uL (140-440); RBC 3.91 X 10*6/uL (4.10-5.20)
[2021-04-15 10:08] LABS: Chol/HDL Ratio 4.26 Ratio; LDL Cholesterol,Calculated 95.7 mg/dL (0.0-131.0)
--- NOTE | 2021-04-15 11:27 | P.PN ---
Subjective The patient is a 45-year-old female with a past medical history of hyperlipidemia, recent COVID-19 infection, recent hospitalization in November 2020 and underwent cardiac catheterization cause of acute myocardial infarction and was found to have evidence suggested of spontaneous coronary artery dissection in the distal LAD and was treated medically. Her echocardiogram at that time showed impairment in the systolic function 30-35%. She has been followed by Dr. Mondragon. She presents to the hospital with chest dicomfort. Her discomfort was at rest, not activity related but there was some improvement with nitroglycerin sublingually. She has been having discomfort on and off since her event. At the time of her cardiac catheterization she had no significant obstructive disease in the RCA or left circumflex. On admission, initial troponin was negative, repeat was mildly elevated at 0.039 and IV heparin was started. third troponin was normal. We repeated an echocardiogram which revealed an EF of 5560%, no significant wall motion abnormalities. Patient seen and examined at bedside, no acute distress. She had some mild chest discomfort yesterday but it has significantly improved. She denies any shortness of breath or palpitations. No other complaints. She is currently maintained on IV heparin, aspirin 81 mg daily, atorvastatin 40 mg daily, Imdur 30 mg daily, lisinopril 20 mg twice a day, metoprolol tartrate 50 mg twice a day, Effient 10 mg daily GENERAL: Well-appearing, well-nourished and in no acute distress. NECK: Supple without JVD or thyromegaly. LUNGS: Breath sounds clear to auscultation bilaterally. Respiration equal and unlabored. No wheezes, rales or rhonchi. HEART: Regular rate and rhythm without murmurs, rubs or gallops. S1 and S2 heard. EXTREMITIES: Normal range of motion, no edema. No clubbing or cyanosis. Peripheral pulses intact. Labs: Hemoglobin 10.6, platelets 254, sodium 137, potassium 3.8, BUN 14, simvastatin 0.7, triglycerides 191, cholesterol 175, LDL 95, HDL 41 ASSESSMENT Chest discomfort no evidence of acute coronary syndrome in a patient with known history of spontaneous coronary artery dissection in November 2020 Recent COVID-19 infection Prior history of cardiomyopathy Dyslipidemia PLAN We will monitor patient for additional 24 hours Continue IV heparin for additional 24 hours If patient stable, no further episodes of chest pain/discomfort, likely discharge tomorrow morning Follow up with Dr. Mondragon Nurse Practitioner note has been reviewed, I agree with a documented findings and plan of care. Patient was seen and examined. Objective - Vital Signs Vital signs: Vital Signs Temp 98 F 04/15/21 07:40 Pulse 75 04/15/21 07:40 Resp 18 04/15/21 09:35 BP 121/75 04/15/21 07:40 Pulse Ox 95 04/15/21 07:40 Intake & Output 04/14/21 04/15/21 04/15/21 18:59 06:59 18:59 Intake Total 71.326 178.674 118 Balance 71.326 178.674 118 Weight 113.398 kg Intake: Intake, IV Titration 71.326 178.674 Amount Heparin Sod,Pork in 0.45% 71.326 178.674 NaCl 25,000 unit In 0.45 % NaCl 1 250ml.bag @ 8. 818 UNITS/KG/HR 9.999 mls /hr IV .Q24H [facility] Rx#: [id number] Oral 118 Other: # Voids 0 # Bowel Movements 0 - Labs CBC & Chem 7: 04/15/21 06:39 04/15/21 06:39 Labs: Abnormal Lab Results - Last 24 Hours (Table) 04/14/21 04/14/21 04/14/21 Range/Units 10:55 10:55 15:47 RBC (4.10-5.20) X 10*6/uL Hgb (12.0-15.0) g/dL Hct (37.2-46.3) % MCHC (32.0-37.0) g/dL Immature Gran # (0.00-0.04) X 10*3/uL APTT 47.5 H 30.5 H (22.0-30.0) sec Chloride (98-107) mmol/L Triglycerides 159.00 H (0.00-149.00) mg/dL HDL Cholesterol 39.60 L (40.00-60.00) mg/dL 04/14/21 04/15/21 04/15/21 Range/Units 23:33 06:39 06:39 RBC (4.10-5.20) X 10*6/uL Hgb (12.0-15.0) g/dL Hct (37.2-46.3) % MCHC (32.0-37.0) g/dL Immature Gran # (0.00-0.04) X 10*3/uL APTT 41.2 H (22.0-30.0) sec Chloride 112 H (98-107) mmol/L Triglycerides 191.00 H (0.00-149.00) mg/dL HDL Cholesterol (40.00-60.00) mg/dL 04/15/21 04/15/21 Range/Units 06:39 06:39 RBC 3.91 L (4.10-5.20) X 10*6/uL Hgb 10.6 L (12.0-15.0) g/dL Hct 33.3 L (37.2-46.3) % MCHC 31.8 L (32.0-37.0) g/dL Immature Gran # 0.05 H (0.00-0.04) X 10*3/uL APTT 55.9 H (22.0-30.0) sec Chloride (98-107) mmol/L Triglycerides (0.00-149.00) mg/dL HDL Cholesterol (40.00-60.00) mg/dL
[2021-04-15 11:34] LABS: INR 0.98 (0.90-1.11); Prothrombin Time 10.8 sec (9.9-11.9)
[2021-04-16] MEDS: HEPARIN SOD,PORK IN 0.45% NACL 25,000 UNIT in 0.45% NACL 1 250ML.BAG IV SCH (02:35)
[2021-04-16] MEDS: METOPROLOL TARTRATE 50 MG TAB PO SCH (08:53)
[2021-04-16] MEDS: ISOSORBIDE MONONITRATE ER 30 MG TAB.ER.24H PO SCH (08:53)
[2021-04-16] MEDS: ASPIRIN 81 MG PO SCH (08:53)
[2021-04-16] MEDS: ATORVASTATIN 40 MG TAB PO SCH (08:53)
[2021-04-16] MEDS: lisinopriL 20 MG TAB PO SCH (08:53)
[2021-04-16] MEDS: PRASUGREL 10 MG TAB PO SCH (08:54)
[2021-04-16 09:06] VITALS: BP 134/89; PULSE 79; RESP 15; TEMP 98.6
--- NOTE | 2021-04-16 11:34 | P.PN ---
Subjective The patient is a 45-year-old female with a past medical history of hyperlipidemia, recent COVID-19 infection, recent hospitalization in November and underwent cardiac catheterization cause of acute myocardial infarction and was found to have evidence suggested of spontaneous coronary artery dissection in the distal LAD and was treated medically. Her echocardiogram at that time showed impairment in the systolic function 30-35%. She has been followed by Dr. Mondragon. She presents to the hospital with chest dicomfort. Her discomfort was at rest, not activity related but there was some improvement with nitroglycerin sublingually. She has been having discomfort on and off since her event. At the time of her cardiac catheterization she had no significant obstructive disease in the RCA or left circumflex. On admission, initial troponin was negative, repeat was mildly elevated at 0.039 and IV heparin was started. third troponin was normal. We repeated an echocardiogram which revealed an EF of 5560%, no significant wall motion abnormalities. Patient seen and examined at bedside, no acute distress. She had some mild chest discomfort yesterday but it has significantly improved. She denies any shortness of breath or palpitations. No other complaints. She is currently maintained on IV heparin, aspirin 81 mg daily, atorvastatin 40 mg daily, Imdur 30 mg daily, lisinopril 20 mg twice a day, metoprolol tartrate 50 mg twice a day, Effient 10 mg daily 04/16/2021 Pt seen and examined sitting up in the recliner chair in no acute distress. She had an episode of sharp pain last night in the mid-sternal region that lasted for less than a second according to her. She was sitting at the time. She has no shortness of breath. She continues to be on heparin infusion and imdur was added to her daily regimen. GENERAL: Well-appearing, well-nourished and in no acute distress. NECK: Supple without JVD or thyromegaly. LUNGS: Breath sounds clear to auscultation bilaterally. Respiration equal and unlabored. No wheezes, rales or rhonchi. HEART: Regular rate and rhythm without murmurs, rubs or gallops. S1 and S2 heard. EXTREMITIES: Normal range of motion, no edema. No clubbing or cyanosis. Peripheral pulses intact. Labs: Hemoglobin 10.6, platelets 254, sodium 137, potassium 3.8, BUN 14, simvastatin 0.7, triglycerides 191, cholesterol 175, LDL 95, HDL 41 ASSESSMENT Chest discomfort no evidence of acute coronary syndrome in a patient with known history of spontaneous coronary artery dissection in November 2020 Recent COVID-19 infection Prior history of cardiomyopathy Dyslipidemia PLAN Stable for discharge on current medication regimen. Follow up with Dr. Mondragon in the office upon discharge. Nurse Practitioner note has been reviewed, I agree with a documented findings and plan of care. Patient was seen and examined. Objective - Vital Signs Vital signs: Vital Signs Temp 98.1 F 04/16/21 02:12 Pulse 71 04/16/21 02:12 Resp 17 04/16/21 02:12 BP 129/78 04/16/21 02:12 Pulse Ox 97 04/16/21 08:04 Intake & Output 04/15/21 04/16/21 04/16/21 18:59 06:59 18:59 Intake Total 354 250.000 102.24 Balance 354 250.000 102.24 Intake: Intake, IV Titration 250.000 102.24 Amount Heparin Sod,Pork in 0.45% 250.000 102.24 NaCl 25,000 unit In 0.45 % NaCl 1 250ml.bag @ 8. 818 UNITS/KG/HR 9.999 mls /hr IV .Q24H [facility] Rx#: [id number] Oral 354 Other: Voiding Method Toilet # Voids 3 1 # Bowel Movements 1 - Labs CBC & Chem 7: 04/15/21 06:39 04/15/21 06:39 Labs: Abnormal Lab Results - Last 24 Hours (Table) 04/15/21 04/15/21 04/15/21 Range/Units 06:39 06:39 14:13 RBC 3.91 L (4.10-5.20) X 10*6/uL Hgb 10.6 L (12.0-15.0) g/dL Hct 33.3 L (37.2-46.3) % MCHC 31.8 L (32.0-37.0) g/dL Immature Gran # 0.05 H (0.00-0.04) X 10*3/uL APTT 45.9 H (22.0-30.0) sec Triglycerides 191.00 H (0.00-149.00) mg/dL 04/16/21 Range/Units 06:10 RBC (4.10-5.20) X 10*6/uL Hgb (12.0-15.0) g/dL Hct (37.2-46.3) % MCHC (32.0-37.0) g/dL Immature Gran # (0.00-0.04) X 10*3/uL APTT 69.6 H (22.0-30.0) sec Triglycerides (0.00-149.00) mg/dL
[2021-04-16] MEDS: ACETAMINOPHEN TAB 325 MG TAB PO PRN (12:22)
== END 2021-04-16 13:13 | disposition home or self-care (01) ==
LOC: EC 03:57 → 1SOBS 07:33 → 6NMEDSUR 08:46
PROVIDERS: ADMIT Family Medicine; ATTEND Family Medicine
DX: R07.89 Other chest pain (principal); E87.6 Hypokalemia; R79.89 Other specified abnormal findings of blood chemistry; I25.10 Atherosclerotic heart disease of native coronary artery without angina pectoris; I10 Essential (primary) hypertension; I42.9 Cardiomyopathy, unspecified; K21.00 Gastro-esophageal reflux disease with esophagitis, without bleeding; E78.5 Hyperlipidemia, unspecified; M06.9 Rheumatoid arthritis, unspecified; I34.0 Nonrheumatic mitral (valve) insufficiency; R91.8 Other nonspecific abnormal finding of lung field; I25.2 Old myocardial infarction; R11.2 Nausea with vomiting, unspecified; Z20.822 Contact with and (suspected) exposure to COVID-19; Z79.82 Long term (current) use of aspirin; Z79.02 Long term (current) use of antithrombotics/antiplatelets; Z79.899 Other long term (current) drug therapy; Z95.5 Presence of coronary angioplasty implant and graft; Z90.49 Acquired absence of other specified parts of digestive tract; Z98.51 Tubal ligation status; Z86.16 Personal history of COVID-19; Z80.3 Family history of malignant neoplasm of breast
CPT/HCPCS: 96376 ×3; 96366 ×4; 96365; 99285; 36415; 94760; 93005; 93306; 80061 ×2; 80053; 80048; 83735; 84484; 85025 ×2; 85610 ×2; 85730 ×3; 82272; 87635; 71046; G0378 ×4; J1644 ×5

== ENCOUNTER 2021-07-27 16:05 | Emergency (ER) | payer BC ==
[2021-07-27 17:23] VITALS: BP 146/92; PULSE 76; RESP 18; TEMP 98.3
--- NOTE | 2021-07-27 18:18 | ED ---
General Adult HPI - General Chief complaint: Extremity Problem,Nontraumatic Stated complaint: rt leg/foot pain Time Seen by Provider: 07/27/21 18:04 Source: patient, RN notes reviewed Mode of arrival: ambulatory Limitations: no limitations - History of Present Illness Initial comments: 45-year-old female presents to the emergency department with complaints of cramping sensation in a localized area on the plantar surface of her right foot. Patient states she woke up this morning with this discomfort and it has not eased since. Patient states she has not taken anything to treat her symptoms. The pain is unchanged with stretching or weightbearing. No loss of function, strength, or sensation. Denies injury or trauma. No prolonged immobilization or recent long car rides. Denies fever, chills, headache, dizziness, chest pain, shortness of breath, difficulty breathing, abdominal pain, nausea, vomiting, diarrhea, dysuria, or lower extremity edema. - Related Data Home Medications Medication Instructions Recorded Confirmed Albuterol Inhaler [Ventolin Hfa 1 puff INHALATION RT-QID PRN 07/27/21 07/27/21 Inhaler] Celecoxib [CeleBREX] 200 mg PO DAILY 07/27/21 07/27/21 Previous Rx's Medication Instructions Recorded Aspirin [Adult Low Dose Aspirin EC] 81 mg PO DAILY #90 tablet. 07/15/15 Prasugrel [Effient] 10 mg PO DAILY 30 Days #30 tab 12/15/20 Metoprolol Tartrate [Lopressor] 50 mg PO BID #180 tab 12/17/20 lisinopriL [Zestril] 20 mg PO BID #180 tab 12/17/20 Atorvastatin [Lipitor] 40 mg PO DAILY #30 tab 04/16/21 Isosorbide Mononitrate ER [Imdur] 30 mg PO DAILY #30 tablet 04/16/21 Acetaminophen [Tylenol 8 Hour] 650 mg PO Q8H PRN #30 tab 07/27/21 Allergies Allergy/AdvReac Type Severity Reaction Status Date / Time No Known Allergies Allergy Verified 07/27/21 17:23 Review of Systems ROS Statement: Those systems with pertinent positive or pertinent negative responses have been documented in the HPI. ROS Other: All systems not noted in ROS Statement are negative. Past Medical History Past Medical History: Coronary Artery Disease (CAD), Chest Pain / Angina, Hypertension, Myocardial Infarction (OK), Rheumatoid Arthritis (RA) Additional Past Medical History / Comment(s): 3 MIs Last Myocardial Infarction Date:: 12/14/20 History of Any Multi-Drug Resistant Organisms: None Reported Past Surgical History: Cholecystectomy, Heart Catheterization, Tubal Ligation Additional Past Surgical History / Comment(s): clear heart cath on 07/14/2015 Past Anesthesia/Blood Transfusion Reactions: No Reported Reaction Past Psychological History: No Psychological Hx Reported Smoking Status: Never smoker Past Alcohol Use History: None Reported Past Drug Use History: None Reported - Past Family History Mother Family Medical History: Cancer Additional Family Medical History / Comment(s): breast CA General Exam Limitations: no limitations (Well-developed, well-nourished female in no acute distress. Initial temperature 98.3, pulse 76, respirations 18, blood pressure 146 were 92, pulse ox 98% on room air.) General appearance: alert, in no apparent distress Eye exam: Present: normal appearance. Absent: scleral icterus, conjunctival injection, periorbital swelling, periorbital tenderness Neck exam: Present: normal inspection, full ROM. Absent: tenderness, men ingismus, lymphadenopathy Respiratory exam: Present: normal lung sounds bilaterally. Absent: respiratory distress, wheezes, rales, rhonchi, stridor, chest wall tenderness Cardiovascular Exam: Present: regular rate, normal rhythm, normal heart sounds. Absent: systolic murmur, diastolic murmur, rubs, gallop, clicks GI/Abdominal exam: Present: soft, normal bowel sounds. Absent: distended, tenderness, guarding, rebound, rigid Right Lower Leg exam: Present: normal inspection, full ROM. Absent: tenderness, swelling, Homans' sign Ankle exam: Present: normal inspection, full ROM. Absent: tenderness, swelling, erythema Foot/Toe exam: Present: normal inspection, full ROM, tenderness (Localized area of tenderness on the plantar surface of the mid foot). Absent: swelling, tenderness at base of 5th metatarsal Neurovascular tendon exam: Present: no vascular compromise. Absent: pulse deficit, abnormal cap refill, motor deficit, sensory deficit, tendon deficit Gait: observed and normal Neurological exam: Present: alert, oriented X3, CN II-XII intact Psychiatric exam: Present: normal affect, normal mood Skin exam: Present: warm, dry, intact, normal color. Absent: rash Course Vital Signs 07/27/21 17:20 Temperature 98.3 F Pulse Rate 76 Respiratory 18 Rate Blood Pressure 146/92 O2 Sat by Pulse 98 Oximetry - Reevaluation(s) Reevaluation #1: 07/27/21 19:33 Upon reassessment, patient is resting more comfortably. States the cramping in her foot has eased. Awaiting results from laboratory studies and ultrasound. Medical Decision Making - Medical Decision Making This is a 45-year-old female with a past medical history of CAD, previous OK, and rheumatoid arthritis who presents to the emergency department for evaluation of right foot pain she describes as a cramp. Upon exam, patient is well- appearing and in no acute distress. She has tenderness upon palpation of the plantar surface of the mid foot extending towards the calcaneus. There is no obvious deformity or range of motion limitation; no injury or trauma was sustained. Ultrasound was obtained and was negative for DVT. Laboratory studies were reviewed and are unremarkable. Patient had improvement in discomfort with Toradol and Flexeril. She will be discharged home to follow up with her PCP for a recheck. Instructed to continue taking home medications as prescribed. Encouraged to rest and apply ice as tolerated. Return parameters were discussed in detail. Patient verbalizes understanding and agrees with this plan. Attending: Ry. - Lab Data Result diagrams: 07/27/21 18:39 07/27/21 18:39 Lab Results 07/27/21 07/27/21 07/27/21 Range/Units 18:39 18:39 18:39 WBC 9.5 (3.8-10.6) k/uL RBC 4.46 (3.80-5.40) m/uL Hgb 12.5 (11.4-16.0) gm/dL Hct 38.9 (34.0-46.0) % MCV 87.2 (80.0-100.0) fL MCH 28.0 (25.0-35.0) pg MCHC 32.1 (31.0-37.0) g/dL RDW 13.6 (11.5-15.5) % Plt Count 246 (150-450) k/uL MPV 8.9 Neutrophils % 63 % Lymphocytes % 27 % Monocytes % 5 % Eosinophils % 2 % Basophils % 1 % Neutrophils # 5.9 (1.3-7.7) k/uL Lymphocytes # 2.6 (1.0-4.8) k/uL Monocytes # 0.5 (0-1.0) k/uL Eosinophils # 0.2 (0-0.7) k/uL Basophils # 0.1 (0-0.2) k/uL PT 9.8 (9.0-12.0) sec INR 0.9 (<1.2) APTT 22.7 (22.0-30.0) sec Sodium 137 (137-145) mmol/L Potassium 4.7 (3.5-5.1) mmol/L Chloride 108 H (98-107) mmol/L Carbon Dioxide 25 (22-30) mmol/L Anion Gap 4 mmol/L BUN 18 H (7-17) mg/dL Creatinine 0.77 (0.52-1.04) mg/dL Est GFR (CKD-EPI)AfAm >90 (>60 ml/min/1.73 sqM) Est GFR (CKD-EPI)NonAf >90 (>60 ml/min/1.73 sqM) Glucose 107 H (74-99) mg/dL Calcium 9.4 (8.4-10.2) mg/dL Total Bilirubin 0.6 (0.2-1.3) mg/dL AST 21 (14-36) U/L ALT 17 (4-34) U/L Alkaline Phosphatase 105 (38-126) U/L Total Protein 7.0 (6.3-8.2) g/dL Albumin 4.1 (3.5-5.0) g/dL - Radiology Data Radiology results: report reviewed Venous Doppler study of the right lower extremity was obtained. Report was reviewed in its entirety. Impression per Dr. Jiang is no evidence of deep vein thrombosis of the right leg. Disposition Clinical Impression: Right foot pain, Plantar fasciitis of right foot Disposition: HOME SELF-CARE Condition: Stable Instructions (If sedation given, give patient instructions): Plantar Fasciitis (ED) Additional Instructions: Rest as needed. Continue taking your home medications as prescribed. Your Celebrex is an anti- inflammatory medication which should help. May take additional Tylenol if needed for pain. May apply ice to sore area for no more than 20 minutes per hour. Follow-up with your PCP for a recheck if pain persists. Return to the emergency department with any new, worsening, or concerning symptoms. Prescriptions: Acetaminophen [Tylenol 8 Hour] 650 mg PO Q8H PRN #30 tab PRN Reason: Pain Is patient prescribed a controlled substance at d/c from ED?: No Referrals: Ayaan Pace MD [Primary Care Provider] - 1-2 days Time of Disposition: 20:00
[2021-07-27] MEDS ORDERED: CYCLOBENZAPRINE 10 MG TAB PO STA (18:19)
[2021-07-27] MEDS ORDERED: KETOROLAC 15 MG/ML 1 ML VIAL IM STA (18:19)
[2021-07-27 18:58] LABS: Basophils # (A) 0.1 k/uL (0-0.2); Basophils % (A) 1 %; Eosinophils # (A) 0.2 k/uL (0-0.7); Eosinophils % (A) 2 %; HCT 38.9 % (34.0-46.0); HGB 12.5 gm/dL (11.4-16.0); Lymphocytes # (A) 2.6 k/uL (1.0-4.8); Lymphocytes % (A) 27 %; MCHC 32.1 g/dL (31.0-37.0); MCV 87.2 fL (80.0-100.0); Mean Platelet Volume 8.9; Monocytes # (A) 0.5 k/uL (0-1.0); Monocytes % (A) 5 %; Neutrophils # (A) 5.9 k/uL (1.3-7.7); Neutrophils % (A) 63 %; Platelet Count 246 k/uL (150-450); RBC 4.46 m/uL (3.80-5.40); RDW 13.6 % (11.5-15.5); WBC 9.5 k/uL (3.8-10.6)
[2021-07-27 19:07] LABS: INR 0.9 (<1.2); Partial Thromboplastin Time 22.7 sec (22.0-30.0); Prothrombin Time 9.8 sec (9.0-12.0)
[2021-07-27 19:18] LABS: ALT 17 U/L (4-34); AST 21 U/L (14-36); African American GFR (CKD) >90 (>60 ml/min/1.73 sqM); Albumin 4.1 g/dL (3.5-5.0); Alkaline Phosphatase 105 U/L (38-126); Anion Gap 4 mmol/L; Blood Urea Nitrogen 18 mg/dL (7-17); Calcium 9.4 mg/dL (8.4-10.2); Carbon Dioxide 25 mmol/L (22-30); Chloride 108 mmol/L (98-107); Glucose 107 mg/dL (74-99); Non-African American GFR(CKD) >90 (>60 ml/min/1.73 sqM); Potassium 4.7 mmol/L (3.5-5.1); Sodium 137 mmol/L (137-145); Total Bilirubin 0.6 mg/dL (0.2-1.3)
--- NOTE | 2021-07-27 19:50 | US ---
EXAMINATION TYPE: US venous doppler duplex LE RT DATE OF EXAM: 07/27/2021 6:53 PM COMPARISON: NONE CLINICAL HISTORY: cramping and pain leg.. Patient states she has a hx of blood clots. Patient states hx of [place] x3; coronary artery disease. Patient presents today with right foot cramp. SIDE PERFORMED: Right TECHNIQUE: The lower extremity deep venous system is examined utilizing real time linear array sonog lili with graded compression, doppler sonography and color-flow sonography. VESSELS IMAGED: Common Femoral Vein Deep Femoral Vein Greater Saphenous Vein * Femoral Vein Popliteal Vein Small Saphenous Vein * Proximal Calf Veins (* superficial vessels) Right Leg: Negative for DVT IMPRESSION: No evidence of deep vein thrombosis in the right leg.
== END 2021-07-27 20:11 | disposition home or self-care (01) ==
LOC: EC 16:05
DX: M72.2 Plantar fascial fibromatosis (principal); I10 Essential (primary) hypertension; I25.10 Atherosclerotic heart disease of native coronary artery without angina pectoris; I25.2 Old myocardial infarction; M06.9 Rheumatoid arthritis, unspecified; Z79.82 Long term (current) use of aspirin; Z79.899 Other long term (current) drug therapy
CPT/HCPCS: 36415; 80053; 85025; 85610; 85730; 99284

== ENCOUNTER 2022-02-26 20:47 | Emergency (ER) | payer BC ==
[2022-02-26 21:02] VITALS: TEMP 97
--- NOTE | 2022-02-26 22:06 | XR ---
EXAMINATION TYPE: XR tibia fibula LT DATE OF EXAM: 02/26/2022 COMPARISON: NONE HISTORY: Pain TECHNIQUE: 4 views FINDINGS: There is spurring of the femoral and tibial condyles. Ankle mortise is anatomic. No fractur e seen. There is spurring on the patella. There is Achilles calcaneal spurring. IMPRESSION: There is mild to moderate osteoarthritis in the knee joint. No fracture seen. No evidence of ankle fracture.
--- NOTE | 2022-02-26 22:07 | XR ---
EXAMINATION TYPE: XR knee complete LT DATE OF EXAM: 02/26/2022 10:00 PM INDICATION: Patient age:Female; 46 years old; Reason for study: Trauma, pain; PHH. COMPARISON: Left knee MRI 09/03/2019 TECHNIQUE: The Left knee(s) was examined in 3 projections. Frontal, lateral and oblique. FINDINGS: Moderate narrowing of the medial joint compartment with subchondral sclerosis and marginal osteophytes. Mild joint space narrowing of the lateral knee compartment with subchondral sclerosis. S mall joint effusion is suggested. Severe patellofemoral joint space narrowing with osteophytes of the inferior and superior patellar pole. Well-corticated ossific density within the popliteal fossa. No radiopaque foreign bodies. No evidence for fracture or dislocation. IMPRESSION: 1. No acute osseous pathology. 2. Moderate to severe tricompartmental osteoarthritic changes.
[2022-02-26] MEDS ORDERED: KETOROLAC 15 MG/ML 1 ML VIAL IM STA (22:22)
--- NOTE | 2022-02-26 22:24 | ED ---
General Adult HPI - General Chief complaint: Extremity Injury, Lower Stated complaint: Fall, L. Leg Injury Time Seen by Provider: 02/26/22 21:08 Source: patient Mode of arrival: ambulatory Limitations: no limitations - History of Present Illness Initial comments: This is a 46-year-old female who presents emergency department for left lower extremity pain. The patient stated that she was going up the stairs when she tripped and fell down approximately 3 stairs 2 days ago. The patient stated that she did not have any pain at that time however woke up yesterday as well as throughout the day today with continued left knee pain and difficulty with movement secondary to pain. The patient stated that she did not hit her knee that she knows of but had continued pain with movement as well as placing weight on the left leg. The patient denied any other acute pain and denied hitting her head and denied losing consciousness. The patient was however resting in bed comfortably. - Related Data Home Medications Medication Instructions Recorded Confirmed Celecoxib [CeleBREX] 200 mg PO DAILY 07/27/21 02/26/22 Esomeprazole Magnesium [NexIUM 40 mg PO DAILY 02/26/22 02/26/22 24Hr] Previous Rx's Medication Instructions Recorded Aspirin [Adult Low Dose Aspirin EC] 81 mg PO DAILY #90 tablet. 07/15/15 Prasugrel [Effient] 10 mg PO DAILY 30 Days #30 tab 12/15/20 Metoprolol Tartrate [Lopressor] 50 mg PO BID #180 tab 12/17/20 lisinopriL [Zestril] 20 mg PO BID #180 tab 12/17/20 Naproxen [EC-Naproxen] 500 mg PO BID #30 tab 02/26/22 methocarbamoL [Robaxin-750] 750 mg PO TID #52 tab 02/26/22 Allergies Allergy/AdvReac Type Severity Reaction Status Date / Time No Known Allergies Allergy Verified 02/26/22 22:22 Review of Systems ROS Statement: Those systems with pertinent positive or pertinent negative responses have been documented in the HPI. ROS Other: All systems not noted in ROS Statement are negative. Past Medical History Past Medical History: Coronary Artery Disease (CAD), Chest Pain / Angina, Hypertension, Myocardial Infarction (PR), Rheumatoid Arthritis (RA) Additional Past Medical History / Comment(s): 3 MIs Last Myocardial Infarction Date:: 12/14/20 History of Any Multi-Drug Resistant Organisms: None Reported Past Surgical History: Cholecystectomy, Heart Catheterization, Tubal Ligation Additional Past Surgical History / Comment(s): clear heart cath on 07/14/2015 Past Anesthesia/Blood Transfusion Reactions: No Reported Reaction Past Psychological History: No Psychological Hx Reported Smoking Status: Never smoker Past Alcohol Use History: None Reported Past Drug Use History: None Reported - Past Family History Mother Family Medical History: Cancer Additional Family Medical History / Comment(s): breast CA General Exam Limitations: no limitations General appearance: alert, in no apparent distress Head exam: Present: atraumatic, normocephalic, normal inspection Eye exam: Present: normal appearance, PERRL Pupils: Present: normal accommodation ENT exam: Present: normal exam, normal oropharynx, mucous membranes moist Neck exam: Present: normal inspection Respiratory exam: Present: normal lung sounds bilaterally Cardiovascular Exam: Present: regular rate, normal rhythm, normal heart sounds GI/Abdominal exam: Present: soft, normal bowel sounds Extremities exam: Present: tenderness (Tenderness noted around the left knee with decreased range of motion secondary to pain) Back exam: Present: normal inspection, full ROM Neurological exam: Present: alert, oriented X3, CN II-XII intact Psychiatric exam: Present: normal affect, normal mood Skin exam: Present: warm, dry Course Vital Signs 02/26/22 21:00 Temperature 97 F L Pulse Rate 85 Respiratory 16 Rate Blood Pressure 168/87 O2 Sat by Pulse 98 Oximetry Medical Decision Making - Medical Decision Making Was pt. sent in by a medical professional or institution ([facility], [facility], urgent care, hospital, or alf...) When possible be specific @ -No Did you speak to anyone other than the patient for history (EMS, parent, family, police, friend...)? What history was obtained from this source @ -No Did you review nursing and triage notes (agree or disagree)? Why? @ -I reviewed and agree with nursing and triage notes Were old charts reviewed (outside hosp., previous admission, EMS record, old EKG, old radiological studies, urgent care reports/EKG's, alf records)? Report findings @ -No old charts were reviewed Differential Diagnosis (chest pain, altered mental status, abdominal pain women, abdominal pain men, vaginal bleeding, weakness, fever, dyspnea, syncope, headache, dizziness, GI bleed, back pain, seizure, CVA, palpatations, mental health)? @ -Left knee muscle strain, fracture, left knee effusion EKG interpreted by me (3pts min.). @ -None X-rays interpreted by me (1pt min.). @ -X-ray of the left lower extremity and left knee were obtained and were interpreted by myself. Lower extremity x-ray showed mild to moderate osteoarthritis in the knee joint. There is no fracture seen. There is no evidence of ankle fracture. Knee x-ray showed no acute pathology. There is moderate to severe tricompartmental osteoarthritic changes. CT interpreted by me (1pt min.). @ -None done U/S interpreted by me (1pt. min.). @ -None done What testing was considered but not performed or refused? (CT, X-rays, U/S, labs)? Why? @ -None What meds were considered but not given or refused? Why? @ -None Did you discuss the management of the patient with other professionals (professionals i.e. , PA, [facility], lab, RT, psych nurse, social professionals, operations lead, teacher, custodial officer, foster care case manager)? Give summary @ -No Was smoking cessation discussed for >3mins.? @ -No Was critical care preformed (if so, how long)? @ -No Were there social determinants of health that impacted care today? How? (Homelessness, low income, unemployed, alcoholism, drug addiction, transportation, low edu. Level, literacy, decrease access to med. care, correction, rehab)? @ -No Was there de-escalation of care discussed even if they declined (Discuss DNR or withdrawal of care, Hospice)? DNR status @ -No What co-morbidities impacted this encounter? (DM, HTN, Smoking, COPD, CAD, Cancer, CVA, ARF, Chemo, Hep., AIDS, mental health diagnosis, sleep apnea, morbid obesity)? @ -Morbid obesity Was patient admitted / discharged? Hospital course, mention meds given and route, prescriptions, significant lab abnormalities, going to OR and other pertinent info. @ -The patient was seen and evaluated in the emergency department. Physical exam, the patient was resting in bed without any acute distress. Vital signs on admission were stable. X-rays were negative and the patient likely had a left knee sprain. The patient was placed in an Paxton wrap and given Toradol for pain. The patient was also given a prescription for naproxen and Robaxin to be taken at home. The patient was given follow-up instructions for orthopedic surgery and told to follow-up for continued workup and evaluation and possible MRI if the pain was persistent. She was also advised report back to the emergency department if her pain became acutely worse. The patient was agreeable to this and all of her questions were answered. The patient was discharged home in sta ble condition. Undiagnosed new problem with uncertain prognosis? @ -No Drug Therapy requiring intensive monitoring for toxicity (Heparin, Nitro, Insulin, Cardizem)? @ -No Were any procedures done? @ -No Diagnosis/symptom? @ -Left knee strain Acute, or Chronic, or Acute on Chronic? @ -Acute Uncomplicated (without systemic symptoms) or Complicated (systemic symptoms)? @ -Uncomplicated Side effects of treatment? @ -No Exacerbation, Progression, or Severe Exacerbation? @ -No Poses a threat to life or bodily function? How? (Chest pain, [place], PR, pneumonia, PE, COPD, DKA, ARF, appy, cholecystitis, CVA, Diverticulitis, Homicidal, Suicidal, threat to staff... and all critical care pts) @ -No Disposition Clinical Impression: Knee sprain Disposition: HOME SELF-CARE Condition: Stable Instructions (If sedation given, give patient instructions): Knee Sprain (ED) Prescriptions: Naproxen [EC-Naproxen] 500 mg PO BID #30 tab methocarbamoL [Robaxin-750] 750 mg PO TID #52 tab Is patient prescribed a controlled substance at d/c from ED?: No Referrals: Ayaan Pace MD [Primary Care Provider] - 1-2 days Sukhwinder Goldsmith MD [STAFF PHYSICIAN] - 1-2 days Time of Disposition: 22:20
[2022-02-26 23:14] VITALS: BP 156/85; PULSE 86; RESP 18
== END 2022-02-26 23:14 | disposition home or self-care (01) ==
LOC: EC 20:47
DX: S83.92XA Sprain of unspecified site of left knee, initial encounter (principal); I25.10 Atherosclerotic heart disease of native coronary artery without angina pectoris; I10 Essential (primary) hypertension; I25.2 Old myocardial infarction; W10.9XXA Fall (on) (from) unspecified stairs and steps, initial encounter
CPT/HCPCS: 73590; 73562; 99284; 96372; J1885

== ENCOUNTER → 2022-02-28 | Outpatient (CLI) | payer BC ==
--- NOTE | 2022-02-28 14:21 | US ---
EXAMINATION TYPE: US venous doppler duplex LE LT DATE OF EXAM: 02/28/2022 2:10 PM COMPARISON: NONE CLINICAL HISTORY: 36-year-old female M25.562 PAIN IN LEFT KNEE, M17.12 UNILATERAL PRIMARY OSTEOAR. Pa in left leg. Patient on blood thinner SIDE PERFORMED: left TECHNIQUE: The lower extremity deep venous system is examined utilizing real time linear array sonog lili with graded compression, doppler sonography and color-flow sonography. FINDINGS: VESSELS IMAGED: Common Femoral Vein Deep Femoral Vein Greater Saphenous Vein * Femoral Vein Popliteal Vein Small Saphenous Vein * Proximal Calf Veins Posterior tibial veins (* superficial vessels) Left Leg: No evidence of DVT IMPRESSION No evidence for DVT within the left lower extremity.
== END | disposition home or self-care (01) ==
LOC: RADUSWWP 13:45
PROVIDERS: ATTEND Orthopaedic Surgery
DX: S83.242D Other tear of medial meniscus, current injury, left knee, subsequent encounter (principal); I80.3 Phlebitis and thrombophlebitis of lower extremities, unspecified; M17.12 Unilateral primary osteoarthritis, left knee

== ENCOUNTER → 2022-03-13 | Outpatient (CLI) | payer BC ==
--- NOTE | 2022-03-13 09:17 | CT ---
EXAMINATION TYPE: CT soft tissue neck w con CT DLP: 854.4 mGycm, Automated exposure control for dose reduction was used. DATE OF EXAM: 03/13/2022 8:48 AM COMPARISON: None. CLINICAL INDICATION:Female, 46 years old with history of R05.3chron cough,R04.2hemoptysis,R22.1sw/mas s/lump; PHH, coughing up blood TECHNIQUE: Standard enhanced CT of the neck following intravenous administration of 100 cc of Isovue 300. Axial sections with coronal and sagittal reformats were obtained. FINDINGS: Brain: Visualized portions are grossly unremarkable. Orbits: Unremarkable Sinuses: Grossly unremarkable. Suprahyoid Neck: The oropharynx, oral cavity, parapharyngeal and retropharyngeal spaces are clear and symmetric. The nasopharynx is unremarkable. Infrahyoid Neck: The larynx, hypopharynx, and supraglottic area are clear and symmetric. Parotid Glands: Unremarkable. Submandibular Glands: Unremarkable. Musculoskeletal: No acute osseous pathology. Lymph nodes: A few nonenlarged lymph nodes are seen along both anterior chains of the neck. Vascular structures: Visualized major arteries are patent without evidence of aneurysm. Thoracic Inlet/airway: Airway is patent. The lung apices are clear. Soft tissues/Thyroid: Thyroid and remainder of the soft tissues are unremarkable. Other: none. IMPRESSION No definite evidence for significant abnormality.
--- NOTE | 2022-03-13 09:22 | CT ---
EXAMINATION TYPE: CT chest wo/w con CT DLP: 1402.1 mGycm, Automated exposure control for dose reduction was used. DATE OF EXAM: 03/13/2022 8:48 AM COMPARISON: Chest radiograph 04/14/2021 CLINICAL INDICATION:Female, 46 years old with history of R05.3chron cough,R04.2hemoptysis,R22.1sw/mas s/lump; PHH, coughing up blood TECHNIQUE: Multiple axial images were obtained through the chest before and after the administration of 100 cc of Isovue 300. FINDINGS: LUNGS/ PLEURA: No pleural effusion, pneumothorax, or focal consolidation. No suspicious pulmonary nod ules or masses. AIRWAY: Patent and unremarkable. HEART: Size within normal limits. No pericardial effusion. MEDIASTINUM: No evidence of adenopathy. VASCULATURE: No aortic aneurysm. MUSCULOSKELETAL: No acute osseous abnormalities SOFT TISSUES/LYMPH NODES: Unremarkable. LOWER NECK: No significant findings. UPPER ABDOMEN: Post cholecystectomy changes. IMPRESSION: No acute thoracic process. No CT findings correlating to patient's symptomology.
== END | disposition home or self-care (01) ==
LOC: RADCTMAIN 08:10
PROVIDERS: ATTEND Otolaryngology
DX: R05.3 Chronic cough (principal); R22.1 Localized swelling, mass and lump, neck; R04.2 Hemoptysis; R49.0 Dysphonia
CPT/HCPCS: 70491; 71270; Q9967

== ENCOUNTER → 2023-01-10 | Outpatient (CLI) | payer BC ==
[2023-01-10 17:20] LABS: ALT 15 U/L (8-44); AST 18 U/L (13-35); Chol/HDL Ratio 2.71 Ratio; LDL Cholesterol,Calculated 101.4 mg/dL (0.0-131.0)
== END | disposition home or self-care (01) ==
LOC: LABWHC1 07:41
PROVIDERS: ATTEND Internal Medicine Cardiovascular Disease
DX: E78.2 Mixed hyperlipidemia (principal)
CPT/HCPCS: 36415; 80061; 84450; 84460

== ENCOUNTER 2024-07-01 19:34 | Observation (INO) | payer BC ==
--- NOTE | 2024-07-01 20:00 | ED ---
General Adult HPI - General Chief complaint: Upper Respiratory Infection Stated complaint: Fever,Syncope,Chest Pain Time Seen by Provider: 07/01/24 19:59 Source: patient Mode of arrival: ambulatory Limitations: no limitations - History of Present Illness Initial comments: 48-year-old female presented to the ER for evaluation of cough. Patient states on Sunday she had 1 episode of nausea and vomiting and her cough started shortly after that. She states she woke up on Sunday and presented to work after being laid off for approximately 2 months. While at work she started to feel lightheaded and dizzy but contributed this to being off of work. Patient states she got home and noted to have a low-grade fever for which she took ibuprofen. She states she does not like taking ibuprofen as it "makes my chest hurt". Patient denies any reoccurring bouts of emesis. Patient is complaining of a persistent cough and states she coughs so hard it "makes me pass out". She denies any current chest discomfort, shortness of breath, dizziness, lightheade dness. She denies any hematemesis, coffee-ground emesis or urinary complaints. She does admit to recent diarrhea for which she took Imodium. She is also complaining of a mild headache but denies any visual disturbances. Denies any visual disturbances. Patient denies recent sick contacts. No other complaints. - Related Data Home Medications Medication Instructions Recorded Confirmed Celecoxib [CeleBREX] 200 mg PO DAILY 07/27/21 02/26/22 Esomeprazole Magnesium [NexIUM 40 mg PO DAILY 02/26/22 02/26/22 24Hr] Previous Rx's Medication Instructions Recorded Aspirin [Adult Low Dose Aspirin EC] 81 mg PO DAILY #90 sharonda. 07/15/15 Prasugrel [Effient] 10 mg PO DAILY 30 Days #30 tab 12/15/20 Metoprolol Tartrate [Lopressor] 50 mg PO BID #180 tab 12/17/20 lisinopriL [Zestril] 20 mg PO BID #180 tab 12/17/20 Naproxen [EC-Naproxen] 500 mg PO BID #30 tab 02/26/22 methocarbamoL [Robaxin-750] 750 mg PO TID #52 tab 02/26/22 Allergies Allergy/AdvReac Type Severity Reaction Status Date / Time No Known Allergies Allergy Verified 07/01/24 19:44 Review of Systems ROS Statement: Those systems with pertinent positive or pertinent negative responses have been documented in the HPI. ROS Other: All systems not noted in ROS Statement are negative. Past Medical History Past Medical History: Coronary Artery Disease (CAD), Chest Pain / Angina, Hypertension, Myocardial Infarction ([place]), Rheumatoid Arthritis ([place]) Additional Past Medical History / Comment(s): 3 MIs Last Myocardial Infarction Date:: 12/14/20 History of Any Multi-Drug Resistant Organisms: None Reported Past Surgical History: Cholecystectomy, Heart Catheterization, Joint Replacement, Orthopedic Surgery, Tubal Ligation Additional Past Surgical History / Comment(s): clear heart cath on 07/14/2015 Past Anesthesia/Blood Transfusion Reactions: No Reported Reaction Past Psychological History: No Psychological Hx Reported Smoking Status: Never smoker Past Alcohol Use History: None Reported Past Drug Use History: None Reported - Past Family History Mother Family Medical History: Cancer Additional Family Medical History / Comment(s): breast [place] General Exam Limitations: no limitations General appearance: alert, in no apparent distress ENT exam: Present: normal exam, normal oropharynx, mucous membranes moist, TM's normal bilaterally Neck exam: Present: normal inspection. Absent: tenderness, meningismus, lymphadenopathy Respiratory exam: Present: normal lung sounds bilaterally. Absent: respiratory distress, wheezes, rales, rhonchi, stridor Cardiovascular Exam: Present: regular rate, normal rhythm, normal heart sounds. Absent: systolic murmur, diastolic murmur, rubs, gallop, clicks GI/Abdominal exam: Present: soft, normal bowel sounds. Absent: distended, tenderness, guarding, rebound, rigid Neurological exam: Present: alert, oriented X3, CN II-XII intact Skin exam: Present: warm, dry, intact, normal color. Absent: rash Course Vital Signs 07/01/24 07/01/24 07/01/24 19:42 21:27 22:51 Temperature 98.9 F 98.3 F Pulse Rate 118 H 104 H 79 Respiratory 20 17 Rate Blood Pressure 146/82 116/68 O2 Sat by Pulse 96 95 Oximetry 07/01/24 07/01/24 23:00 23:25 Temperature Pulse Rate 80 Respiratory 20 Rate Blood Pressure O2 Sat by Pulse Oximetry - Reevaluation(s) Reevaluation #1: 07/02/24 00:52 Patient admitted to [facility] this was discussed by my Dr. Joyce EKG Findings - EKG Comments: EKG Findings:: EKG taken at 19: 57 showing a sinus tachycardia with occasional PVCs. No ST segment elevations or depressions. No T wave inversions. Ventricular rate 116, [place] interval 128, QRS duration 86, QT/QTc 324/393. Medical Decision Making - Medical Decision Making Was pt. sent in by a medical professional or institution (, SUSAN, SPOOL WORKER, urgent care, hospital, or fdc...) When possible be specific @ -No Did you speak to anyone other than the patient for history (EMS, parent, family, police, friend...)? What history was obtained from this source @ -No Did you review nursing and triage notes (agree or disagree)? Why? @ -I reviewed and agree with nursing and triage notes Were old charts reviewed (outside hosp., previous admission, EMS record, old EKG, old radiological studies, urgent care reports/EKG's, fdc records)? Report findings @ -No old charts were reviewed Differential Diagnosis (chest pain, altered mental status, abdominal pain women, abdominal pain men, vaginal bleeding, weakness, fever, dyspnea, syncope, headache, dizziness, GI bleed, back pain, seizure, CVA, palpatations, mental health, musculoskeletal)? @ -COVID, RSV, influenza, viral sinusitis, pneumonia, strep pharyngitis, this list is not meant to be all-inclusive EKG interpreted by me (3pts min.). @ -As above X-rays interpreted by me (1pt min.). @ -Chest x-ray interpreted me negative for focal consolidations, pneumothorax or pleural effusions CT interpreted by me (1pt min.). @ -CTA chest negative for acute evidence of pulmonary embolism. U/S interpreted by me (1pt. min.). @ -None done What testing was considered but not performed or refused? (CT, X-rays, U/S, labs)? Why? @ -None What meds were considered but not given or refused? Why? @ -None Did you discuss the management of the patient with other professionals (professionals i.e. SUSAN Varela, SPOOL WORKER, lab, RT, psych nurse, social media analyst, administrative support coordinator, teacher, digital controls technical officer, immigration case worker)? Give summary @ -Case discussed by my attending Dr. Joyce with [facility] for admission as [facility] is not contacted during the night Was smoking cessation discussed for >3mins.? @ -No Was critical care preformed (if so, how long)? @ -No Were there social determinants of health that impacted care today? How? (Homelessness, low income, unemployed, alcoholism, drug addiction, transportation, low edu. Level, literacy, decrease access to med. care, usp, rehab)? @ -No Was there de-escalation of care discussed even if they declined (Discuss DNR or withdrawal of care, Hospice)? DNR status @ -No What co-morbidities impacted this encounter? (DM, HTN, Smoking, COPD, CAD, Cancer, CVA, ARF, Chemo, Hep., AIDS, mental health diagnosis, sleep apnea, morbid obesity)? @ -Obesity, Coronary artery disease, hypertension, rheumatoid arthritis Was patient admitted / discharged? Hospital course, mention meds given and route, prescriptions, significant lab abnormalities, going to OR and other pertinent info. @ Admitted. 48 year old female presenting to the ER for evaluation of cough. On arrival patient tachycardic 118 bpm vitals otherwise acceptable limits. Laboratory studies obtained remarkable for WBC 7.4, hemoglobin 10.4, lactic 1.1. Cepheid negative. Given tachycardia patient reporting numerous syncopal episodes, troponin and D-dimer ordered. Troponin undetectable at <0.012. D- dimer elevated 1.35 for which CTA chest was ordered and negative for acute evidence of pulmonary embolism. EKG showing sinus tachycardia with occasional PVCs. Patient received symptomatic treatment in the ER with IV fluids, DuoNeb, Tylenol and Tessalon Perles. Cough believed to be viral in nature. Upon reevaluation, patient reporting continued episodes of syncope and is refusing discharge. Patient will be admitted observation for syncope. This was discussed with [facility] by my attending, Dr. Joyce. Patient admitted in stable condition. Undiagnosed new problem with uncertain prognosis? @ -No Drug Therapy requiring intensive monitoring for toxicity (Heparin, Nitro, Insulin, Cardizem)? @ -No Were any procedures done? @ -No Diagnosis/symptom? @ -Recurrent syncope/viral illness Acute, or Chronic, or Acute on Chronic? @ -Acute Uncomplicated (without systemic symptoms) or Complicated (systemic symptoms)? @ -Complicated Side effects of treatment? @ -No Exacerbation, Progression, or Severe Exacerbation? @ -No Poses a threat to life or bodily function? How? (Chest pain, [place], MT, pneumonia, PE, COPD, DKA, ARF, appy, cholecystitis, CVA, Diverticulitis, Homicidal, Suicid al, threat to staff... and all critical care pts) @ -Possibly - Lab Data Result diagrams: 07/01/24 20:05 07/01/24 20:05 Lab Results 07/01/24 07/01/24 07/01/24 Range/Units 20:05 20:05 20:05 WBC 7.43 (4.50-10.00) 10*3/uL RBC 4.10 (4.10-5.20) 10*6/uL Hgb 10.4 L (12.0-15.0) g/dL Hct 33.4 L (37.2-46.3) % MCV 81.5 (80.0-97.0) fL MCH 25.4 L (27.0-32.0) pg MCHC 31.1 L (32.0-37.0) g/dL Plt Count 235 (140-440) 10*3/uL MPV 11.0 (9.5-12.2) fL Immature Gran % (Auto) 0.4 % Neutrophils % 62.0 % Lymphocytes % 25.3 % Monocytes % 7.1 % Eosinophils % 4.7 % Basophils % 0.5 % Immature Gran # 0.03 (0.00-0.04) 10*3/uL Neutrophils # 4.60 (1.80-7.70) 10*3/uL Lymphocytes # 1.88 (0.90-5.00) 10*3/uL Monocytes # 0.53 (0.20-1.00) 10*3/uL Eosinophils # 0.35 (0.04-0.35) 10*3/uL Basophils # 0.04 (0.00-0.10) 10*3/uL PT (10.0-12.5) sec INR (<1.2) APTT (22.0-30.0) sec D-Dimer (<0.60) mg/L FEU Sodium 136 L (137-145) mmol/L Potassium 4.1 (3.5-5.1) mmol/L Chloride 106 (98-107) mmol/L Carbon Dioxide 23 (22-30) mmol/L Anion Gap 7 mmol/L BUN 23 H (7-17) mg/dL Creatinine 1.00 (0.52-1.04) mg/dL Est GFR (CKD-EPI)AfAm 79 (>60 ml/min/1.73 sqM) Est GFR (CKD-EPI)NonAf 68 (>60 ml/min/1.73 sqM) Glucose 118 H (74-99) mg/dL Plasma Lactic Acid Brannon (0.7-2.0) mmol/L Calcium 9.0 (8.4-10.2) mg/dL Total Bilirubin 1.0 (0.2-1.3) mg/dL AST 22 (14-36) U/L ALT 16 (4-34) U/L Alkaline Phosphatase 113 (38-126) U/L Troponin I (0.000-0.034) ng/mL Total Protein 6.7 (6.3-8.2) g/dL Albumin 3.8 (3.5-5.0) g/dL Urine Color Urine Appearance (Clear) Urine pH (5.0-8.0) Ur Specific [place] (1.001-1.035) Urine Protein (Negative) Urine Glucose (UA) (Negative) Urine Ketones (Negative) Urine Blood (Negative) Urine Nitrite (Negative) Urine Bilirubin (Negative) Urine Urobilinogen (<2.0) mg/dL Ur Leukocyte Esterase (Negative) Urine HCG, Qual (Not Detectd) Influenza Type A (PCR) Not Detected (Not Detectd) Influenza Type B (PCR) Not Detected (Not Detectd) RSV (PCR) Not Detected (Not Detectd) SARS-CoV-2 (PCR) Not Detected (Not Detectd) 07/01/24 07/01/24 07/01/24 Range/Units 20:05 21:19 21:19 WBC (4.50-10.00) 10*3/uL RBC (4.10-5.20) 10*6/uL Hgb (12.0-15.0) g/dL Hct (37.2-46.3) % MCV (80.0-97.0) fL MCH (27.0-32.0) pg MCHC (32.0-37.0) g/dL Plt Count (140-440) 10*3/uL MPV (9.5-12.2) fL Immature Gran % (Auto) % Neutrophils % % Lymphocytes % % Monocytes % % Eosinophils % % Basophils % % Immature Gran # (0.00-0.04) 10*3/uL Neutrophils # (1.80-7.70) 10*3/uL Lymphocytes # (0.90-5.00) 10*3/uL Monocytes # (0.20-1.00) 10*3/uL Eosinophils # (0.04-0.35) 10*3/uL Basophils # (0.00-0.10) 10*3/uL PT (10.0-12.5) sec INR (<1.2) APTT (22.0-30.0) sec D-Dimer (<0.60) mg/L FEU Sodium (137-145) mmol/L Potassium (3.5-5.1) mmol/L Chloride (98-107) mmol/L Carbon Dioxide (22-30) mmol/L Anion Gap mmol/L BUN (7-17) mg/dL Creatinine (0.52-1.04) mg/dL Est GFR (CKD-EPI)AfAm (>60 ml/min/1.73 sqM) Est GFR (CKD-EPI)NonAf (>60 ml/min/1.73 sqM) Glucose (74-99) mg/dL Plasma Lactic Acid Brannon 1.1 (0.7-2.0) mmol/L Calcium (8.4-10.2) mg/dL Total Bilirubin (0.2-1.3) mg/dL AST (14-36) U/L ALT (4-34) U/L Alkaline Phosphatase (38-126) U/L Troponin I (0.000-0.034) ng/mL Total Protein (6.3-8.2) g/dL Albumin (3.5-5.0) g/dL Urine Color Light Yellow Urine Appearance Clear (Clear) Urine pH 5.5 (5.0-8.0) Ur Specific [place] 1.027 (1.001-1.035) Urine Protein Negative (Negative) Urine Glucose (UA) Negative (Negative) Urine Ketones Negative (Negative) Urine Blood Negative (Negative) Urine Nitrite Negative (Negative) Urine Bilirubin Negative (Negative) Urine Urobilinogen <2.0 (<2.0) mg/dL Ur Leukocyte Esterase Negative (Negative) Urine HCG, Qual Not Detected (Not Detectd) Influenza Type A (PCR) (Not Detectd) Influenza Type B (PCR) (Not Detectd) RSV (PCR) (Not Detectd) SARS-CoV-2 (PCR) (Not Detectd) 07/01/24 07/01/24 07/01/24 Range/Units 21:34 21:34 21:34 WBC (4.50-10.00) 10*3/uL RBC (4.10-5.20) 10*6/uL Hgb (12.0-15.0) g/dL Hct (37.2-46.3) % MCV (80.0-97.0) fL MCH (27.0-32.0) pg MCHC (32.0-37.0) g/dL Plt Count (140-440) 10*3/uL MPV (9.5-12.2) fL Immature Gran % (Auto) % Neutrophils % % Lymphocytes % % Monocytes % % Eosinophils % % Basophils % % Immature Gran # (0.00-0.04) 10*3/uL Neutrophils # (1.80-7.70) 10*3/uL Lymphocytes # (0.90-5.00) 10*3/uL Monocytes # (0.20-1.00) 10*3/uL Eosinophils # (0.04-0.35) 10*3/uL Basophils # (0.00-0.10) 10*3/uL PT 10.0 (10.0-12.5) sec INR 0.9 (<1.2) APTT 20.8 L (22.0-30.0) sec D-Dimer 1.35 H (<0.60) mg/L FEU Sodium (137-145) mmol/L Potassium (3.5-5.1) mmol/L Chloride (98-107) mmol/L Carbon Dioxide (22-30) mmol/L Anion Gap mmol/L BUN (7-17) mg/dL Creatinine (0.52-1.04) mg/dL Est GFR (CKD-EPI)AfAm (>60 ml/min/1.73 sqM) Est GFR (CKD-EPI)NonAf (>60 ml/min/1.73 sqM) Glucose (74-99) mg/dL Plasma Lactic Acid Brannon (0.7-2.0) mmol/L Calcium (8.4-10.2) mg/dL Total Bilirubin (0.2-1.3) mg/dL AST (14-36) U/L ALT (4-34) U/L Alkaline Phosphatase (38-126) U/L Troponin I <0.012 (0.000-0.034) ng/mL Total Protein (6.3-8.2) g/dL Albumin (3.5-5.0) g/dL Urine Color Urine Appearance (Clear) Urine pH (5.0-8.0) Ur Specific [place] (1.001-1.035) Urine Protein (Negative) Urine Glucose (UA) (Negative) Urine Ketones (Negative) Urine Blood (Negative) Urine Nitrite (Negative) Urine Bilirubin (Negative) Urine Urobilinogen (<2.0) mg/dL Ur Leukocyte Esterase (Negative) Urine HCG, Qual (Not Detectd) Influenza Type A (PCR) (Not Detectd) Influenza Type B (PCR) (Not Detectd) RSV (PCR) (Not Detectd) SARS-CoV-2 (PCR) (Not Detectd) - Radiology Data Radiology results: report reviewed, image reviewed Disposition Clinical Impression: Syncope, Cough Disposition: ADMITTED IP TO THIS [facility] Condition: Stable Referrals: Ayaan Pace MD [Primary Care Provider] - 1-2 days Time of Disposition: 00:46
[2024-07-01 20:42] LABS: Basophils # (A) 0.04 10*3/uL (0.00-0.10); Basophils % (A) 0.5 %; Eosinophils # (A) 0.35 10*3/uL (0.04-0.35); Eosinophils % (A) 4.7 %; HCT 33.4 % (37.2-46.3); HGB 10.4 g/dL (12.0-15.0); Lymphocytes # (A) 1.88 10*3/uL (0.90-5.00); Lymphocytes % (A) 25.3 %; MCH 25.4 pg (27.0-32.0); MCHC 31.1 g/dL (32.0-37.0); MCV 81.5 fL (80.0-97.0); Monocytes # (A) 0.53 10*3/uL (0.20-1.00); Monocytes % (A) 7.1 %; Platelet Count 235 10*3/uL (140-440); RDW 15.3 % (11.5-14.5); WBC 7.43 10*3/uL (4.50-10.00)
[2024-07-01 20:53] LABS: ALT 16 U/L (4-34); AST 22 U/L (14-36); African American GFR (CKD) 79 (>60 ml/min/1.73 sqM); Albumin 3.8 g/dL (3.5-5.0); Alkaline Phosphatase 113 U/L (38-126); Anion Gap 7 mmol/L; Blood Urea Nitrogen 23 mg/dL (7-17); Carbon Dioxide 23 mmol/L (22-30); Chloride 106 mmol/L (98-107); Glucose 118 mg/dL (74-99); Non-African American GFR(CKD) 68 (>60 ml/min/1.73 sqM); Potassium 4.1 mmol/L (3.5-5.1); Sodium 136 mmol/L (137-145); Total Protein 6.7 g/dL (6.3-8.2)
[2024-07-01] MEDS: ACETAMINOPHEN TAB 500 MG TAB PO STA (21:09)
[2024-07-01] MEDS: SODIUM CHLORIDE 0.9% 1,000 ML IV ONE (21:11)
[2024-07-01 21:18] LABS: Influenza A Not Detected (Not Detectd); Influenza B Not Detected (Not Detectd); RSV Not Detected (Not Detectd)
--- NOTE | 2024-07-01 21:26 | XR ---
EXAMINATION TYPE: XR chest 2V DATE OF EXAM: 07/01/2024 9:23 PM COMPARISON: Chest radiographs from 04/14/2021, CT chest 03/13/2022 TECHNIQUE: XR chest 2V Frontal and lateral views of the chest. CLINICAL INDICATION:Female, 48 years old with history of cough; FINDINGS: Lungs/Pleura: There is no evidence of pleural effusion, focal consolidation, or pneumothorax. Pulmonary vascularity: Unremarkable. Heart/mediastinum: Cardiomediastinal silhouette is unremarkable. Musculoskeletal: Multiple level degenerative disc disease changes seen throughout the spine. IMPRESSION: No acute cardiopulmonary disease/process. [facility], , 07/01/2024 9:24 PM
[2024-07-01 21:29] LABS: Appearance,Urine Clear (Clear); Bilirubin,Urine Negative (Negative); Blood,Urine Negative (Negative); Color,Urine Light Yellow; Glucose,Urine (UA) Negative (Negative); Ketones,Urine Negative (Negative); Leukocyte Esterase,Urine Negative (Negative); Nitrite,Urine Negative (Negative); PH, Urine 5.5 (5.0-8.0); Protein,Urine Negative (Negative); Specific Gravity,Urine 1.027 (1.001-1.035); Urobilinogen,Urine <2.0 mg/dL (<2.0)
[2024-07-01 21:49] LABS: INR 0.9 (<1.2)
[2024-07-01 22:21] LABS: Partial Thromboplastin Time 20.8 sec (22.0-30.0)
[2024-07-01] MEDS: IPRATROPIUM-ALBUTEROL 3 ML NEB INHALATION STA (22:51)
--- NOTE | 2024-07-02 00:31 | CT ---
EXAM: CT Angiography Chest With Intravenous Contrast CLINICAL HISTORY: ITS.REASON CT Reason: elevated dimer TECHNIQUE: Axial computed tomographic angiography images of the chest with intravenous contrast. CTDI is 59.3 mGy and DLP is 1660.8 mGy-cm. This CT exam was performed using one or more of the following dose reduction techniques: automated exposure control, adjustment of the mA and/or kV according to patient size, and/or use of iterative reconstruction technique. MIP reconstructed images were created and reviewed. COMPARISON: 03/13/2022 FINDINGS: Limitations: Exam limited secondary patient respiratory motion and phase of contrast administration. Pulmonary arteries: Unremarkable. No large central pulmonary embolus. Aorta: No acute findings. No thoracic aortic aneurysm. Lungs: Unremarkable. No mass. No consolidation. Pleural space: Unremarkable. No significant effusion. No pneumothorax. Heart: cardiomegaly. No significant pericardial effusion. No evidence of RV dysfunction. Bones/joints: No acute fracture. No dislocation. Soft tissues: Unremarkable. Lymph nodes: Unremarkable. No enlarged lymph nodes. Gallbladder and bile ducts: Postoperative changes prior cholecystectomy. IMPRESSION: No acute findings in the visualized arteries of the chest.
[2024-07-02] MEDS ORDERED: NALOXONE 0.4 MG/ML 1 ML VIAL IV PRN (00:46)
[2024-07-02] MEDS: BENZONATATE 100 MG CAP PO STA (01:06)
--- NOTE | 2024-07-02 08:39 | P.HPIM ---
History of Present Illness H&P Date: 07/02/24 Chief Complaint: Dizziness The patient is a 48-year-old white female with known history of subendocardial myocardial infarction remotely who is struggled with osteoarthritis. She states several days ago she became significantly nauseated. Medication that she was taking did not help her and she continued to have significant dizziness with nausea. She has not not complained of this symptom in the past. Workup so far in the emergency room is negative. No head trauma in the past. No fever or chills. No abnormal dietary intake. Significantly, the patient states coughing can induce syncope. Review of Systems Constitutional: Denies chills, Denies fever Eyes: denies blurred vision, denies pain Ears, nose, mouth and throat: Denies headache, Denies sore throat Cardiovascular: Reports syncope, Denies chest pain, Denies shortness of breath Respiratory: Denies cough Gastrointestinal: Denies abdominal pain, Denies diarrhea, Denies nausea, Denies vomiting Past Medical History Past Medical History: Coronary Artery Disease (CAD), Chest Pain / Angina, Hypertension, Myocardial Infarction ([place]), Rheumatoid Arthritis (RA) Additional Past Medical History / Comment(s): 3 MIs Last Myocardial Infarction Date:: 12/14/20 History of Any Multi-Drug Resistant Organisms: None Reported Past Surgical History: Cholecystectomy, Heart Catheterization, Joint Replacement, Orthopedic Surgery, Tubal Ligation Additional Past Surgical History / Comment(s): clear heart cath on 07/14/2015, right total knee replacement Past Anesthesia/Blood Transfusion Reactions: No Reported Reaction Past Psychological History: No Psychological Hx Reported Smoking Status: Never smoker Past Alcohol Use History: None Reported Past Drug Use History: None Reported - Past Family History Mother Family Medical History: Cancer Additional Family Medical History / Comment(s): breast CA Medications and Allergies Home Medications Medication Instructions Recorded Confirmed Type Aspirin [Adult Low Dose Aspirin EC] 81 mg PO DAILY #90 tablet. 07/15/15 07/02/24 Rx Metoprolol Tartrate [Lopressor] 50 mg PO BID #180 tab 12/17/20 07/02/24 Rx lisinopriL [Zestril] 20 mg PO BID #180 tab 12/17/20 07/02/24 Rx Celecoxib [CeleBREX] 200 mg PO DAILY 07/27/21 07/02/24 History Esomeprazole Magnesium [NexIUM 40 mg PO DAILY 02/26/22 07/02/24 History 24Hr] Atorvastatin [Lipitor] 40 mg PO DAILY 07/02/24 07/02/24 History amLODIPine [Norvasc] 10 mg PO DAILY 07/02/24 07/02/24 History Allergies Allergy/AdvReac Type Severity Reaction Status Date / Time No Known Allergies Allergy Verified 07/02/24 07:44 Physical Exam Vitals: Vital Signs Temp Pulse Pulse Pulse Pulse Pulse Resp 07/02/24 07:05 98.0 F 101 H 18 07/02/24 01:45 97.9 F 103 H 108 H 100 20 07/02/24 01:02 98.0 F 89 20 07/01/24 23:25 20 07/01/24 23:00 80 07/01/24 22:51 79 07/01/24 21:27 98.3 F 104 H 17 07/01/24 19:42 98.9 F 118 H 20 BP BP BP BP BP Pulse Ox 07/02/24 07:05 131/75 94 L 07/02/24 01:45 132/74 142/86 131/83 96 07/02/24 01:02 114/85 94 L 07/01/24 23:25 07/01/24 23:00 07/01/24 22:51 07/01/24 21:27 116/68 95 07/01/24 19:42 146/82 96 Intake and Output 07/01/24 07/02/24 07/02/24 22:59 06:59 14:59 Other: # Voids 2 Weight 140.614 kg 140.614 kg - Constitutional General appearance: obese - EENT Eyes: EOMI - Neck Neck: no lymphadenopathy - Respiratory Respiratory: bilateral: diminished - Cardiovascular Rhythm: regular Heart sounds: normal: S1, S2 Abnormal Heart Sounds: no S3 Gallop - Gastrointestinal General gastrointestinal: soft, no tenderness - Psychiatric Psychiatric: A&O x's 3 Results CBC & Chem 7: 07/01/24 20:05 07/01/24 20:05 Labs: Abnormal Lab Results - Last 24 Hours (Table) 07/01/24 07/01/24 07/01/24 Range/Units 20:05 20:05 21:34 Hgb 10.4 L (12.0-15.0) g/dL Hct 33.4 L (37.2-46.3) % MCH 25.4 L (27.0-32.0) pg MCHC 31.1 L (32.0-37.0) g/dL APTT 20.8 L (22.0-30.0) sec D-Dimer (<0.60) mg/L FEU Sodium 136 L (137-145) mmol/L BUN 23 H (7-17) mg/dL Glucose 118 H (74-99) mg/dL 07/01/24 Range/Units 21:34 Hgb (12.0-15.0) g/dL Hct (37.2-46.3) % MCH (27.0-32.0) pg MCHC (32.0-37.0) g/dL APTT (22.0-30.0) sec D-Dimer 1.35 H (<0.60) mg/L FEU Sodium (137-145) mmol/L BUN (7-17) mg/dL Glucose (74-99) mg/dL Thrombosis Risk Factor Assmnt - Choose All That Apply Any of the Below Risk Factors Present?: Yes Each Factor Represents 1 point: Age 41-60 years, Obesity (BMI >25) Other Risk Factors: Yes Each Risk Factor Represents 3 Points: History of DVT/PE Other congenital or acquired thrombophilia - If yes, enter type in comment: No Thrombosis Risk Factor Assessment Total Risk Factor Score: 5 Thrombosis Risk Factor Assessment Level: High Risk Assessment and Plan (1) Cough Current Visit: Yes Status: Acute Code(s): R05.9 - COUGH, UNSPECIFIED SNOMED Code(s): 73043675 (2) Syncope Current Visit: Yes Status: Acute Code(s): R55 - SYNCOPE AND COLLAPSE SNOMED Code(s): 319356279 (3) Reflux esophagitis Current Visit: No Status: Chronic Code(s): K21.0 - GASTRO-ESOPHAGEAL REFLUX DISEASE WITH ESOPHAG * DO NOT USE * SNOMED Code(s): 193379426 Plan: Check echocardiogram. Reconcile home medications. Consult cardiology. Neurologic consult if necessary. The patient is otherwise full code.
[2024-07-02] MEDS: MELOXICAM 7.5 MG TAB PO SCH (09:43)
[2024-07-02] MEDS: ASPIRIN 81 MG PO SCH (09:45)
[2024-07-02] MEDS: ATORVASTATIN 40 MG TAB PO SCH (09:45)
[2024-07-02] MEDS: METOPROLOL TARTRATE 50 MG TAB PO SCH (09:45)
[2024-07-02] MEDS: amLODIPine 10 MG TAB PO SCH (09:45)
[2024-07-02] MEDS: lisinopriL 20 MG TAB PO SCH (09:45)
[2024-07-02] MEDS: PANTOPRAZOLE 40 MG TABLET PO SCH (09:49)
--- NOTE | 2024-07-02 12:19 | P.CRDCN ---
History of Present Illness History of present illness: HISTORY OF PRESENTING ILLNESS This is a pleasant 48-year-old female past medical history significant for coronary artery disease, hypertension, dyslipidemia and obesity. She follo ws in the office with Dr. Mondragon. We have been asked to see in consultation for syncope. The patient recently underwent total knee replacement. Yesterday was her first day back to work. She states after working 4 hours she started feeling nauseous and was coughing. She then started feeling lightheaded. She did not actually pass out but had a near syncopal spell. EKG reveals sinus tachycardia with PVCs heart rate of 116. Chest x-ray is negative for any acute cardiopulmonary process. CT angio negative with no thoracic aortic aneurysm noted. Laboratory data reviewed, WBC 7.4, hemoglobin 10.4, platelets 235, D- dimer 1.35, sodium 136, potassium 4.1, creatinine 1 and troponin negative x 2. Current daily cardiac medications include aspirin 81 mg daily, atorvastatin 40 mg daily, Norvasc 10 mg daily, lisinopril 20 mg twice daily and metoprolol tartrate 50 mg twice daily. Most recent echocardiogram obtained March 2021 revealed preserved LV systolic function with ejection fraction 55 to 60%, mild MR and trace TR with no pulmonary hypertension. 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 REVIEW OF SYSTEMS At the time of my exam: CONSTITUTIONAL: Denies fever or chills. Complains of overall weakness. CARDIOVASCULAR: Denies chest pain, shortness of breath, orthopnea, PND or palpitations. RESPIRATORY: Denies cough. GASTROINTESTINAL: Denies abdominal pain, diarrhea, constipation, nausea or vomiting. MUSCULOSKELETAL: Denies myalgias. NEUROLOGIC: Denies numbness, tingling, headache or weakness. ENDOCRINE: Denies fatigue, weight change, polydipsia or polyurina. GENITOURINARY: Denies burning, hematuria or urgency with micturation. HEMATOLOGIC: Denies history of anemia or bleeding. PHYSICAL EXAMINATION Blood pressure 131/75 heart rate 94 afebrile and maintaining oxygen saturation on room air. CONSTITUTIONAL: No apparent distress. HEENT: Head is normocephalic. Pupils are equal, round. Sclerae anicteric. Mucous membranes of the mouth are moist. No JVD. No carotid bruit. CHEST EXAMINATION: Lungs are clear to auscultation. No chest wall tenderness is noted on palpation or with deep breathing. HEART EXAMINATION: Regular rate and rhythm. S1, S2 heard. No murmurs, gallops or rub. ABDOMEN: Soft, nontender. EXTREMITIES: 2+ peripheral pulses, no lower extremity edema and no calf tenderness. NEUROLOGIC EXAMINATION: Patient is awake, alert and oriented x3. ASSESSMENT Near syncope Coronary artery disease Hypertension Dyslipidemia PLAN An acute coronary event has been ruled out. She admits she has been out of her beta-blockers for a few weeks which is why she is likely tachycardic. Resume home meds. An echocardiogram has been ordered and will be reviewed. Advised her to get up and walk around, increase water intake and eat. Further management per primary care team. Stable for discharge from a cardiac perspective, follow up with Dr. Mondragon in 2 weeks. Thank you kindly for this consultation. Nurse Practitioner note has been reviewed, I agree with a documented findings and plan of care. Patient was seen and examined. Past Medical History Past Medical History: Coronary Artery Disease (CAD), Chest Pain / Angina, Hypertension, Myocardial Infarction ([place]), Rheumatoid Arthritis (RA) Additional Past Medical History / Comment(s): 3 MIs Last Myocardial Infarction Date:: 12/14/20 History of Any Multi-Drug Resistant Organisms: None Reported Past Surgical History: Cholecystectomy, Heart Catheterization, Joint Replacement, Orthopedic Surgery, Tubal Ligation Additional Past Surgical History / Comment(s): clear heart cath on 07/14/2015, right total knee replacement Past Anesthesia/Blood Transfusion Reactions: No Reported Reaction Past Psychological History: No Psychological Hx Reported Smoking Status: Never smoker Past Alcohol Use History: None Reported Past Drug Use History: None Reported - Past Family History Mother Family Medical History: Cancer Additional Family Medical History / Comment(s): breast CA Medications and Allergies Home Medications Medication Instructions Recorded Confirmed Type Aspirin [Adult Low Dose Aspirin EC] 81 mg PO DAILY #90 tablet. 07/15/15 07/02/24 Rx Metoprolol Tartrate [Lopressor] 50 mg PO BID #180 tab 12/17/20 07/02/24 Rx lisinopriL [Zestril] 20 mg PO BID #180 tab 12/17/20 07/02/24 Rx Celecoxib [CeleBREX] 200 mg PO DAILY 07/27/21 07/02/24 History Esomeprazole Magnesium [NexIUM 40 mg PO DAILY 02/26/22 07/02/24 History 24Hr] Atorvastatin [Lipitor] 40 mg PO DAILY 07/02/24 07/02/24 History amLODIPine [Norvasc] 10 mg PO DAILY 07/02/24 07/02/24 History Allergies Allergy/AdvReac Type Severity Reaction Status Date / Time No Known Allergies Allergy Verified 07/02/24 07:44 Physical Exam Vitals: Vital Signs Temp Pulse Pulse Pulse Pulse Pulse Resp 07/02/24 08:00 18 07/02/24 07:05 98.0 F 101 H 18 07/02/24 01:45 97.9 F 103 H 108 H 100 20 07/02/24 01:02 98.0 F 89 20 07/01/24 23:25 20 07/01/24 23:00 80 07/01/24 22:51 79 07/01/24 21:27 98.3 F 104 H 17 07/01/24 19:42 98.9 F 118 H 20 BP BP BP BP BP Pulse Ox 07/02/24 08:00 07/02/24 07:05 131/75 94 L 07/02/24 01:45 132/74 142/86 131/83 96 07/02/24 01:02 114/85 94 L 07/01/24 23:25 07/01/24 23:00 07/01/24 22:51 07/01/24 21:27 116/68 95 07/01/24 19:42 146/82 96 Intake and Output 07/01/24 07/02/24 07/02/24 22:59 06:59 14:59 Other: Voiding Method Toilet # Voids 2 Weight 140.614 kg 140.614 kg Results 07/01/24 20:05 07/01/24 20:05 Cardiac Enzymes 07/01/24 07/01/24 07/02/24 Range/Units 20:05 21:34 09:25 AST 22 (14-36) U/L Troponin I <0.012 <0.012 (0.000-0.034) ng/mL Coagulation 07/01/24 Range/Units 21:34 PT 10.0 (10.0-12.5) sec APTT 20.8 L (22.0-30.0) sec CBC 07/01/24 Range/Units 20:05 WBC 7.43 (4.50-10.00) 10*3/uL RBC 4.10 (4.10-5.20) 10*6/uL Hgb 10.4 L (12.0-15.0) g/dL Hct 33.4 L (37.2-46.3) % Plt Count 235 (140-440) 10*3/uL Comprehensive Metabolic Panel 07/01/24 Range/Units 20:05 Sodium 136 L (137-145) mmol/L Potassium 4.1 (3.5-5.1) mmol/L Chloride 106 (98-107) mmol/L Carbon Dioxide 23 (22-30) mmol/L BUN 23 H (7-17) mg/dL Creatinine 1.00 (0.52-1.04) mg/dL Glucose 118 H (74-99) mg/dL Calcium 9.0 (8.4-10.2) mg/dL AST 22 (14-36) U/L ALT 16 (4-34) U/L Alkaline Phosphatase 113 (38-126) U/L Total Protein 6.7 (6.3-8.2) g/dL Albumin 3.8 (3.5-5.0) g/dL Current Medications Generic Name Dose Route Start Last Admin Trade Name Freq PRN Reason Stop Dose Admin Amlodipine Besylate 10 mg 07/02/24 09:00 07/02/24 09:45 Amlodipine 10 Mg Tab PO 10 mg DAILY TOSHIA Administration Aspirin 81 mg 07/02/24 09:00 07/02/24 09:45 Aspirin 81 Mg PO 81 mg DAILY TOSHIA Administration Atorvastatin Calcium 40 mg 07/02/24 09:00 07/02/24 09:45 Atorvastatin 40 Mg Tab PO 40 mg DAILY TOSHIA Administration Lisinopril 20 mg 07/02/24 09:00 07/02/24 09:45 Lisinopril 20 Mg Tab PO 20 mg BID TOSHIA Administration Meloxicam 7.5 mg 07/02/24 09:00 07/02/24 09:43 Meloxicam 7.5 Mg Tab PO 7.5 mg DAILY TOSHIA Administration Metoprolol Tartrate 50 mg 07/02/24 09:00 07/02/24 09:45 Metoprolol Tartrate 50 Mg Tab PO 50 mg BID TOSHIA Administration Naloxone HCl 0.2 mg 07/02/24 00:46 Naloxone 0.4 Mg/Ml 1 Ml Vial IV Q2M PRN Opioid Reversal Pantoprazole Sodium 40 mg 07/02/24 09:00 07/02/24 09:49 Pantoprazole 40 Mg Tablet PO 40 mg [id number] TOSHIA Administration Intake and Output 07/01/24 07/02/24 07/02/24 22:59 06:59 14:59 Other: Voiding Method Toilet # Voids 2 Weight 140.614 kg 140.614 kg 07/01/24 20:05 07/01/24 20:05
[2024-07-02] MEDS ORDERED: ACETAMINOPHEN TAB 325 MG TAB PO PRN (13:45)
[2024-07-02 15:24] VITALS: RESP 16
[2024-07-03 07:40] VITALS: BP 140/84; PULSE 88; TEMP 98.4
--- NOTE | 2024-07-03 08:54 | P.DS ---
Providers Date of admission: 07/02/24 00:45 Attending physician: Ayaan Pace Consults: 07/02/24 05:13 Consult Physician Routine Consulting Provider: Marcin Kline Consult Reason/Comments: Syncope, Bigeminy Do you want consulting provider notified?: Yes, Notify in am 07/02/24 08:40 Consult Physician Routine Consulting Provider: Debbi Cadena Consult Reason/Comments: DIZZINess, syncope Do you want consulting provider notified?: Yes Primary care physician: Ayaan Pace - Discharge Diagnosis(es) (1) Cough Current Visit: Yes Status: Acute (2) Syncope Current Visit: Yes Status: Acute (3) Reflux esophagitis Current Visit: No Status: Chronic Hospital Course: This is a 48-year-old female who presented to the emergency department with complaints of nausea and dizziness. She has a known history of a subendocardial myocardial infarction. Cardiac workup was negative. Patient reports she is feeling better. Echo is scheduled for today. Patient has been cleared by cardiology for discharge. Patient may be discharged today after echo is completed. Patient reportedly has been out of her beta-ravindra, will send a new prescription today. Patient seen and evaluated by nurse practitioner, physician in agreement with plan. Patient Condition at Discharge: Stable Plan - Discharge Summary Discharge Rx Participant: No New Discharge Prescriptions: New Metoprolol Tartrate [Lopressor] 50 mg PO BID 30 Days #60 tab Continue Aspirin [Adult Low Dose Aspirin EC] 81 mg PO DAILY #90 tablet. Atorvastatin [Lipitor] 40 mg PO DAILY lisinopriL [Zestril] 20 mg PO BID #180 tab Celecoxib [CeleBREX] 200 mg PO DAILY Esomeprazole Magnesium [NexIUM 24Hr] 40 mg PO DAILY amLODIPine [Norvasc] 10 mg PO DAILY Discontinued Metoprolol Tartrate [Lopressor] 50 mg PO BID #180 tab Discharge Medication List Aspirin [Adult Low Dose Aspirin EC] 81 mg PO DAILY #90 tablet. 07/15/15 [Rx] lisinopriL [Zestril] 20 mg PO BID #180 tab 12/17/20 [Rx] Celecoxib [CeleBREX] 200 mg PO DAILY 07/27/21 [History] Esomeprazole Magnesium [NexIUM 24Hr] 40 mg PO DAILY 02/26/22 [History] Atorvastatin [Lipitor] 40 mg PO DAILY 07/02/24 [History] amLODIPine [Norvasc] 10 mg PO DAILY 07/02/24 [History] Metoprolol Tartrate [Lopressor] 50 mg PO BID 30 Days #60 tab 07/03/24 [Rx] Follow up Appointment(s)/Referral(s): Ayaan Pace MD [Primary Care Provider] - 1 Week Chapo Mondragon MD [STAFF PHYSICIAN] - 2 Weeks Discharge Disposition: HOME SELF-CARE
--- NOTE | 2024-07-03 11:20 | CA ---
Transthoracic Echo Report Name: Inessa Rick Age: 48 Gender: F : 1975 Exam Date: 07/03/2024 09:27 Exam Location: [facility] Ht (in): 66 Wt (lb): 310 Ordering Physician: Ayaan Pace MD Attending/Referring Phys: Production Stage Manager Palmira Ackerman RDCS Procedure CPT: Indications: syncope, dizziness Cardiac Hx: CAD, HTN, OK Technical Quality: Technically difficult study Contrast 1: Definity Total Dose (mL): 2 Contrast 2: Total Dose (mL): MEASUREMENTS (Male / Female) Normal Values 2D ECHO LV Diastolic Diameter PLAX 4.2 cm 4.2 - 5.9 / 3.9 - 5.3 cm LV Systolic Diameter PLAX 2.7 cm IVS Diastolic Thickness 1.0 cm 0.6 - 1.0 / 0.6 - 0.9 cm LVPW Diastolic Thickness 1.0 cm 0.6 - 1.0 / 0.6 - 0.9 cm LV Relative Wall Thickness 0.5 RV Internal Dim ED PLAX 2.7 cm LVOT Diameter 1.9 cm LA Systolic Diameter LX 4.1 cm 3.0 - 4.0 / 2.7 - 3.8 cm LA Volume 89.6 cm??? 18 - 58 / 22 - 52 cm??? LA Volume Index 33.9 cm???/m??? 16 - 28 cm???/m??? DOPPLER MV Area PHT 3.9 cm??? Mitral E Point Velocity 76.8 cm/s Mitral A Point Velocity 77.2 cm/s Mitral E to A Ratio 1.0 MV Deceleration Time 195.2 ms TR Peak Velocity 212.0 cm/s TR Peak Gradient 18.0 mmHg Right Atrial Pressure 10.0 mmHg Pulmonary Artery Systolic Pressu 28.0 mmHg Right Ventricular Systolic Press 28.0 mmHg FINDINGS Left Ventricle Left ventricular ejection fraction is estimated at 60 %. Mildly increased septal wall thickness. Normal left ventricular systolic function with no obvious regional wall motion abnormalities. Right Ventricle Normal right ventricular size and function. Right ventricular systolic pressure within normal limits. Right Atrium Normal right atrial size. Left Atrium Mildly increased left atrial diameter. Mildly increased left atrial volume. Mildly increased left atrial area. Mitral Valve Mitral annular calcification. No mitral stenosis. Mild mitral regurgitation. Aortic Valve Trileaflet aortic valve. Aortic valve sclerosis. No aortic stenosis. No aortic regurgitation. Tricuspid Valve Structurally normal tricuspid valve. No tricuspid stenosis. Trace tricuspid regurgitation. Pulmonic Valve Pulmonic valve not well visualized. No pulmonic stenosis. Trace pulmonic regurgitation. Pericardium No pericardial effusion. Aorta Normal size aortic root and proximal ascending aorta. CONCLUSIONS Normal LV size and systolic function. Mild mitral and tricuspid regurgitation mildly enlarged left atrium. Normal right-sided pressures. No pericardial effusion Previewed by: Dr. Josh Snyder MD (Electronically Signed) Final Date: 03 Jul 2024 11:19
== END 2024-07-03 11:46 | disposition home or self-care (01) ==
LOC: EC 19:34 → 6NMEDSUR 07-02 00:45
PROVIDERS: ADMIT Family Medicine; ATTEND Family Medicine
DX: R05.9 Cough, unspecified (principal); R55 Syncope and collapse; K21.00 Gastro-esophageal reflux disease with esophagitis, without bleeding; I25.10 Atherosclerotic heart disease of native coronary artery without angina pectoris; I10 Essential (primary) hypertension; I25.2 Old myocardial infarction; M06.9 Rheumatoid arthritis, unspecified; E78.5 Hyperlipidemia, unspecified; I49.3 Ventricular premature depolarization; Z79.02 Long term (current) use of antithrombotics/antiplatelets; Z79.1 Long term (current) use of non-steroidal anti-inflammatories (NSAID); Z79.82 Long term (current) use of aspirin; Z79.899 Other long term (current) drug therapy
CPT/HCPCS: 99285; 36415; 94640; 93306; 85379; 80053; 83605; 84484 ×2; 85025; 85610; 85730; 81003; 81025; 87636; 71046; 71275; G0378 ×2; Q9967